=== PATIENT | male | born 1955 | race Caucasian/White ===

== ENCOUNTER 2019-04-03 19:49 | Emergency (ER) | payer OTHER ==
[~2019-04-03] VITALS: Ht 165.1 cm; Wt 80.7 kg
[2019-04-03 20:00] VITALS: BP 134/77
--- NOTE | 2019-04-03 22:00 | NUR ---
PATIENT CALLED. NO RESPONSE.
--- NOTE | 2019-04-03 22:16 | NUR ---
PATIENT CALLED FOR RECHECK. NO RESPONSE AT THIS TIME.
--- NOTE | 2019-04-03 22:25 | NUR ---
PATIENT CALLED. NO RESPONSE AT THIS TIME.
== END 2019-04-03 22:25 | disposition left against medical advice (07) ==
LOC: MED 19:49
DX: R06.6 Hiccough (principal); R51 Headache; E11.9 Type 2 diabetes mellitus without complications; I10 Essential (primary) hypertension; Z53.21 Procedure and treatment not carried out due to patient leaving prior to being seen by health care provider

== ENCOUNTER 2022-11-29 20:16 | Inpatient (IN) | payer OTHER ==
[~2022-11-29] VITALS: Ht 177.8 cm; Wt 86.2 kg
[2022-11-29 20:17] VITALS: BP 142/69
--- NOTE | 2022-11-29 20:21 | NUR ---
PT MARCOS ALS. TAKEN TO BED 11
--- NOTE | 2022-11-29 20:31 | NUR ---
Dr. Corona examining patient.
--- NOTE | 2022-11-29 20:32 | NUR ---
ER physician at patient bedside.
[2022-11-29] MEDS ORDERED: NACL 0.9% 2,000 ML IV ONE (20:35)
[2022-11-29 21:07] LABS: BASOPHILS % (AUTO) 0.1 % (0.0-2.0); EOSINOPHILS % (AUTO) 0.1 % (0.0-4.0); LYMPHOCYTES # (AUTO) 0.8 K/uL (2.0-11.5); LYMPHOCYTES % (AUTO) 3.2 % (20.5-51.1); MEAN CORPUSCULAR HEMOGLOBIN 29 pg (27-31); MEAN CORPUSCULAR HGB CONC 36 g/dL (33-37); MEAN CORPUSCULAR VOLUME 78.5 fL (80-94); MONOCYTES # (AUTO) 1.5 K/uL (0.8-1.0); MONOCYTES % (AUTO) 5.9 % (1.7-9.3); NEUTROPHILS % (AUTO) 90.7 % (42.2-75.2); PLATELET COUNT (AUTO) 295 K/uL (140-450); RED BLOOD CELL COUNT(AUTO) 2.24 MIL/uL (4.20-6.10); RED CELL DISTRIBUTION WIDTH 14.1 % (11.6-13.7)
[2022-11-29 21:19] LABS: ANION GAP 9.4 (8-16); CARBON DIOXIDE 28.2 mmol/L (21-32); POTASSIUM 3.6 mmol/L (3.5-5.1)
--- NOTE | 2022-11-29 21:21 | NUR ---
hakeem sister [phone], pt gave permission to give info
[2022-11-29 21:25] LABS: WHITE BLOOD COUNT (AUTO) 26.4 K/uL (4.8-10.8)
[2022-11-29 21:26] LABS: HEMOGLOBIN 6.4 g/dL (12.0-18.0)
[2022-11-29 21:27] LABS: HEMATOCRIT 17.6 % (36-52)
--- NOTE | 2022-11-29 21:29 | NUR ---
Patient A/Ox4, resting in bed, chest rise and fall symmetrical, no c/o pain or s/s of distress.
[2022-11-29] MEDS ORDERED: ZOLPIDEM 10 MG TAB PO PRN (21:45)
[2022-11-29] MEDS ORDERED: MAG SULF 2000 MG/WATER PREMIX 50 ML IV PRN (21:45)
[2022-11-29] MEDS ORDERED: ACETAMINOPHEN 325 MG TAB PO PRN (21:45)
[2022-11-29] MEDS ORDERED: ONDANSETRON 4 MG/2 ML VIAL IVP PRN (21:45)
[2022-11-29] MEDS ORDERED: DOCUSATE SODIUM 100 MG GELCAP PO PRN (21:45)
[2022-11-29] MEDS ORDERED: MORPHINE SULFATE 2 MG/ML SYR IVP PRN (21:45)
[2022-11-29] MEDS ORDERED: POTASSIUM CHLORIDE 10 MEQ TABER PO PRN (21:45)
[2022-11-29] MEDS ORDERED: DEXTROSE 50% 50 ML SYR IVP PRN (21:50)
--- NOTE | 2022-11-29 22:08 | NUR ---
PT TAKEN TO CT
[2022-11-29] MEDS ORDERED: cefTRIAXone 1,000 MG VIAL ONE (22:13)
[2022-11-29 22:25] LABS: PROTHROMBIN TIME 11.1 secs (10.8-13.4)
--- NOTE | 2022-11-29 22:45 | NUR ---
Patient A/Ox4, resting in bed, chest rise and fall symmetrical, no c/o pain or s/s of distress.
--- NOTE | 2022-11-29 22:54 | NUR ---
Patient will be admitted to care of Telemetry Nurse Elie FOWLER. Admited to Telemetry. Will go to room 110B. Belongings list completed. Report to Telemetry Nurse Elie FOWLER. Telemetry Nurse Elie FOWLER verbalized understanding of report.
--- NOTE | 2022-11-29 23:01 | NUR ---
Dr. Cali verbally informed via telephone that patient stated he "does not have his medications, does not have a list of his medications, and does not rememer the names of his medications." Dr. Cali verbalized understanding and stated that she "will do the medication reconciliation" when she meets with patient tomorrow.
--- NOTE | 2022-11-29 23:15 | NUR ---
PT TRANSPORTED VIA GURNEY FROM ER. PT IS AAOX4. PT SPEAKS PASHTO AND ROMANIAN. PT IS ON RA NOT IN ANY RESPIRATORY DISTRESS. PT ABLE TO AMBULATE WITH ASSIST. PT HAS RIGHT HAND 20 GAUGE SALINE LOCK AND LEFT HAND 20 GAUGE SALINE LOCK. PT DENIES ANY PAIN AND HAS NO COMPLAINS. EDUCATED PT MARKER HAND LIGHT SYSTEM. WILL CONTINUE TO MONITOR THE PT.
[2022-11-30] VITALS: BP 168/61
[2022-11-30] MEDS: ALBUTEROL 0.083% 2.5 MG/3 ML NEBU INH SCH ×4 (00:10→19:42)
--- NOTE | 2022-11-30 00:35 | NUR ---
BLOOD TRANSFUSION STARTED ON PT PER DR. ORDER. NO BLOOD TRANSFUSION REACTION NOTED. WILL CONTINUE TO MONITOR THE PT.
--- NOTE | 2022-11-30 02:05 | NUR ---
OBSERVED PT. PT IS RESTING IN BED COMFORTABLY. PT NOT IN ANY DISTRESS. BLOOD TRANSFUSION STILL RUNNING. WILL CONTINUE TO MONITOR THE PT.
--- NOTE | 2022-11-30 03:10 | NUR ---
BLOOD TRANSFUSION COMPLETED. NO BLOOD TRANSFUSION NOTED. WILL CONTINUE TO MONITOR THE PT.
[2022-11-30 04:00] VITALS: BP 137/72
[2022-11-30] MEDS ORDERED: PIPERACILLIN/TAZOBACTAM 2.25 GM VIAL IV ONE (04:06)
[2022-11-30] MEDS: PIPERACILLIN/TAZOBACTAM 2.25 GM in DEXTROSE 5% 50 ML IV SCH ×3 (04:37→20:38)
--- NOTE | 2022-11-30 04:37 | NUR ---
SCHEDULE ZOSYN GIVEN. NO ADVERSE REACTION NOTED. WILL CONTINUE TO MONITOR THE PT.
[2022-11-30] MEDS: INSULIN LISPRO SLIDING SCALE 100 UNITS/ML VIAL SUBQ PRN ×4 (06:31→21:09)
[2022-11-30] MEDS: BLOOD GLUCOSE MONITORING 1 DEV DEV FS SCH ×4 (06:31→21:03)
[2022-11-30 07:01] LABS: BASOPHILS # (AUTO) 0.1 K/uL (0.00-0.22); BASOPHILS % (AUTO) 0.4 % (0.0-2.0); EOSINOPHILS % (AUTO) 0.1 % (0.0-4.0); HEMOGLOBIN 7.9 g/dL (12.0-18.0); LYMPHOCYTES # (AUTO) 0.9 K/uL (2.0-11.5); LYMPHOCYTES % (AUTO) 2.8 % (20.5-51.1); MEAN CORPUSCULAR HEMOGLOBIN 29 pg (27-31); MEAN CORPUSCULAR HGB CONC 36 g/dL (33-37); MEAN CORPUSCULAR VOLUME 80.5 fL (80-94); MONOCYTES # (AUTO) 1.7 K/uL (0.8-1.0); MONOCYTES % (AUTO) 5.4 % (1.7-9.3); NEUTROPHILS # (AUTO) 28.2 K/uL (1.8-7.7); NEUTROPHILS % (AUTO) 91.3 % (42.2-75.2); PLATELET COUNT (AUTO) 310 K/uL (140-450); RED BLOOD CELL COUNT(AUTO) 2.73 MIL/uL (4.20-6.10)
--- NOTE | 2022-11-30 07:08 | NUR ---
ENDORSED PT TO DAY SHIFT RN FOR CONTINUITY OF CARE. PT IS STABLE.
--- NOTE | 2022-11-30 07:10 | NUR ---
RECEIVED REPORT ON PT FROM WATER RESOURCE ENGINEERING SPECIALIST NURSE FOR CONTINUITY OF CARE. PT IN BED AWAKE AND ALERTX4 . ABLE TO VERBALIZE NEEDS. IV ON L HAND 20G AND R HAND 20G. SL. RESPIRATIONS EVEN AND UNLABORED ON RA. NO DISTRESS NOTED. ALL SAFETY PRECAUTIONS IN PLACE.
[2022-11-30 07:14] LABS: WHITE BLOOD COUNT (AUTO) 30.8 K/uL (4.8-10.8)
[2022-11-30 07:20] LABS: ANION GAP 10.5 (8-16); CARBON DIOXIDE 26.9 mmol/L (21-32); CREATININE 0.8 mg/dL (0.6-1.3); POTASSIUM 3.4 mmol/L (3.5-5.1)
[2022-11-30] MEDS ORDERED: VANCOMYCIN PER PHARMACY MC PRN (07:30)
[2022-11-30 08:00] VITALS: BP 144/71
[2022-11-30] MEDS: VANCOMYCIN 1,000 MG in DEXTROSE 5% 250 ML IV SCH ×2 (09:00→20:37)
--- NOTE | 2022-11-30 09:17 | NUR ---
PATIENT HAS BEEN SCREENED AND CATEGORIZED MODERATE NUTRITION RISK. PATIENT WILL BE SEEN WITHIN 3-5 DAYS OF ADMISSION. REVIEWED BY DIANA WOODALL RD
[2022-11-30] MEDS ORDERED: NACL 0.9% 1,000 ML IV SCH (11:15)
[2022-11-30] MEDS: LORazepam 2 MG/ML VIAL IVP PRN (11:46)
--- NOTE | 2022-11-30 11:50 | NUR ---
PT C/O HAVING ANXIETY AND REQUESTS MEDICATION. ATIVAN ADMINISTERED BY JANETH MAYER
[2022-11-30] MEDS: METOCLOPRAMIDE 10 MG TAB PO SCH ×2 (11:54→16:33)
--- NOTE | 2022-11-30 11:54 | NUR ---
MEDICATION REGLAN ADMINISTERED. PT PLACED MEDICATION IN MOUTH AND BEGAN COUGHING. PT UNSURE IF HE SWALLOWED PILL. NURSE LOOKED AROUND BLANKETS, BED AND FLOOR. MEDICATION NOT FOUND.
[2022-11-30 12:00] VITALS: BP 140/73
[2022-11-30] MEDS ORDERED: MAG SULF 2000 MG/WATER PREMIX 50 ML IV ONE (13:00)
[2022-11-30] MEDS ORDERED: MAG SULF 2000 MG/WATER PREMIX 100 ML IV SCH (13:00)
[2022-11-30] MEDS ORDERED: POTASSIUM CHLORIDE 10 MEQ TABER PO SCH (13:30)
--- NOTE | 2022-11-30 15:16 | NUR ---
DC PLANNING: ATTEMPTED TO MEET PATIENT AT THE BEDSIDE. HOWEVER, PATIENT IS ASLEEP. WILL FOLLOW. Addendum: 12/05/22 at 1226 by Cynthia Mcconnell RN DC PLANNING: PATIENT GOT ACCEPTED AT [facility] [place] FOR IV ABX AND PT. CAN GO TO ROOM 37A # TO GIVE REPORT [phone] ARRANGED TRANSPORT WITH [facility] OBSTETRICIAN/GYNECOLOGIST TIME 1500 NOTIFIED KRISTY CALLAWAY CM TO FOLLOW
--- NOTE | 2022-11-30 15:29 | NUR ---
P.T. NOTES P.T. EVAL COMPLETED; REFER TO EVAL FOR DETAILS.
[2022-11-30 16:00] VITALS: BP 150/72
[2022-11-30 17:25] LABS: ANION GAP 10.2 (8-16); CARBON DIOXIDE 27.4 mmol/L (21-32); CREATININE 0.8 mg/dL (0.6-1.3); POTASSIUM 3.6 mmol/L (3.5-5.1)
--- NOTE | 2022-11-30 17:38 | NUR ---
LAB CALLED WITH CRITICAL SODIUM 118. INFORMED DR CHRISTINA.
--- NOTE | 2022-11-30 19:24 | NUR ---
ENDORSED PT TO INTERNAL AFFAIRS INVESTIGATOR NURSE FOR CONTINUITY OF CARE. PT IN STABLE CONDITION.
--- NOTE | 2022-11-30 20:00 | NUR ---
RECEIVED REPORT FROM KENDRICK. NOTED PT IN BED, LOOKING UNCOMFORTABLE, WITH SLIGHT HICCUPS, DINNER TRAY ON TABLE BY BED SIDE UNTOUCHED. ENCOURAGED PT TO EAT BUT REFUSED. WILL CONT TO MONITOR.
[2022-11-30] MEDS: NACL 0.9% 1,000 ML IV SCH (21:16)
--- NOTE | 2022-11-30 22:00 | NUR ---
RECEIVED MD TALISHA PENA TELEPHONE ORDER TO DO A COVID TEST WITH PCR. ORDER NOTED AND CARRIED OUT. PT IN BED, HELED WITH DIYA CARE AND MADE COMFORTABLE.
[2022-12-01 00:11] VITALS: BP 148/81
--- NOTE | 2022-12-01 00:30 | NUR ---
NOTED PT VOMITED COFFEE GROUND EMESIS. CLEANED UP, HOB ELEVATED
[2022-12-01] MEDS: ALBUTEROL 0.083% 2.5 MG/3 ML NEBU INH SCH ×5 (01:00→19:00)
--- NOTE | 2022-12-01 01:05 | NUR ---
TX NOT GIVEN, PT IS THROWING UP COFFEE GROUND EMESIS, RN AWARE. WILL CONTINUE TO MONITOR
--- NOTE | 2022-12-01 01:30 | NUR ---
PT VOMITTED COFFEE GROUND EMESIS AGAIN. WAS GIVEN ORDERED ZOFRAN IVP. NOTED PT STILL UNCOMFORTABLE, GOT TELEPHONE ORDER FROM MD FOR NG-TUBE INSERTION, ALSO HYDRALAZINE [id number] FOR SBP>160, PT BP WAS NOTED TO BE OVER 160 AT THE TIME. PT IS ALSO COUGHING, RECEIVED ORDER FOR ROBITUSSIN 10ML Q8HR FOR COUGH. MD ALSO GAVE TO FOR CONSULT GI DR ROYAL. ALL ORDERS NOTED AND CARRIED OUT.
[2022-12-01] MEDS ORDERED: guaiFENesin DM 200/20 MG-10 ML 10 ML UDC PO PRN (03:55)
[2022-12-01 04:43] VITALS: BP 140/70
[2022-12-01] MEDS: NACL 0.9% 1,000 ML IV SCH ×3 (06:00→22:31)
[2022-12-01] MEDS: INSULIN LISPRO SLIDING SCALE 100 UNITS/ML VIAL SUBQ PRN ×4 (06:03→20:51)
[2022-12-01] MEDS: BLOOD GLUCOSE MONITORING 1 DEV DEV FS SCH ×4 (06:05→20:49)
[2022-12-01] MEDS: PIPERACILLIN/TAZOBACTAM 2.25 GM in DEXTROSE 5% 50 ML IV SCH ×3 (06:06→21:28)
[2022-12-01 07:28] LABS: HEMATOCRIT 20.7 % (36-52); HEMOGLOBIN 7.4 g/dL (12.0-18.0); MEAN CORPUSCULAR HEMOGLOBIN 29 pg (27-31); MEAN CORPUSCULAR HGB CONC 36 g/dL (33-37); MEAN CORPUSCULAR VOLUME 80.8 fL (80-94); PLATELET COUNT (AUTO) 388 K/uL (140-450); RED BLOOD CELL COUNT(AUTO) 2.56 MIL/uL (4.20-6.10); RED CELL DISTRIBUTION WIDTH 15.1 % (11.6-13.7)
[2022-12-01 08:00] VITALS: BP 156/56
--- NOTE | 2022-12-01 08:03 | NUR ---
END OF SHIFT REPORT GIVEN TO JEAN FOR CONTINUITY OF CARE. PT IN BED ASLEEP. NOTED ONE MORE EMESIS, WAS CLEANED UP. PT NOW NPO, STABLE AT THIS TIME.
[2022-12-01 08:27] LABS: ANION GAP 10.8 (8-16); CREATININE 0.8 mg/dL (0.6-1.3); POTASSIUM 3.8 mmol/L (3.5-5.1)
[2022-12-01 08:35] LABS: LYMPHOCYTES % (MANUAL) 2 % (20-46); MONOCYTES % (MANUAL) 3 % (5-12)
[2022-12-01] MEDS ORDERED: PROMETHAZINE 25 MG TAB PO SCH (09:00)
[2022-12-01] MEDS: METOCLOPRAMIDE 10 MG/2 ML INJ VIAL IVP SCH ×3 (09:41→17:58)
[2022-12-01] MEDS: PANTOPRAZOLE 40 MG INJ VIAL IVP SCH (09:41)
[2022-12-01] MEDS: VANCOMYCIN HCL 1.25 GM in DEXTROSE 5% 250 ML IV SCH ×2 (09:42→22:27)
[2022-12-01 12:00] VITALS: BP 153/76
[2022-12-01 16:00] VITALS: BP 159/59
--- NOTE | 2022-12-01 19:15 | NUR ---
RECEIVED PT FROM MORNING SHIFT NURSE. PT IS AOX2-3, POLISH SPEAKING AND ON BEDBOUND. PT HAS 2L NC AND ON NPO EXCEPT MEDS. PT HAS IV ON LEFT HAND GAUGE 20, SALINE LOCK AND RIGHT HAND GAUGE 20 RUNNING WITH NS AT 125ML/HR. PT DENIES PAIN AT THIS TIME. NO S/S OF RESPIRATORY DISTRESS NOTED. PT SKIN IS INTACT. ALL SAFETY MEASURES IMPLEMENTED. BED IN LOW POSITION, BED WHEELS ON LOCK AND CALL LIGHT WITHIN REACH.
[2022-12-01 20:00] VITALS: BP 151/80
--- NOTE | 2022-12-01 20:30 | NUR ---
PT WAS ENDORSED TO JEN GLORIA DUE TO CHANGED OF ASSIGNMENT AND CONTINUITY OF CARE.
--- NOTE | 2022-12-01 20:31 | NUR ---
Patient's Plan of Care was discussed and reviewed with JEN: FAIZAN
[2022-12-02] VITALS: BP 138/63
--- NOTE | 2022-12-02 00:30 | NUR ---
PATIENT WAS GIVEN PRN FOR SLEEP. NOT EFFECTIVE. NURSING ENCOURAGED TO TURN OFF LIGHTS PATIENT DECLINED. NURSING WILL MONITOR [email or web address]
[2022-12-02] MEDS: ALBUTEROL 0.083% 2.5 MG/3 ML NEBU INH SCH ×4 (01:00→20:10)
--- NOTE | 2022-12-02 01:30 | NUR ---
PATIENT CONFUSED USING CALL LIGHT LIKE A PHONE. PATIENT WAS EDUCATED TO CALL FAMILY IN THE AM INSTEAD OF NOW. PATIENT AGREED. NURSING ENCOURAGED HIM TO SLEEP. [email or web address]
[2022-12-02 04:00] VITALS: BP 124/56
[2022-12-02] MEDS: PIPERACILLIN/TAZOBACTAM 2.25 GM in DEXTROSE 5% 50 ML IV SCH ×3 (04:13→21:00)
--- NOTE | 2022-12-02 05:37 | NUR ---
PATIENT HAS MANAGED TO PULL OUT HIS NG TUBING. BELT OPERATOR MD HAS BEEN NOTIFIED. AWAITING ORDERS. [email or web address]
[2022-12-02] MEDS: NACL 0.9% 1,000 ML IV SCH ×2 (06:14→16:06)
[2022-12-02] MEDS ORDERED: HALOPERIDOL IM 5 MG/ML VIAL IM SCH (06:25)
[2022-12-02] MEDS: BLOOD GLUCOSE MONITORING 1 DEV DEV FS SCH ×4 (06:52→21:00)
[2022-12-02] MEDS: INSULIN LISPRO SLIDING SCALE 100 UNITS/ML VIAL SUBQ PRN ×3 (06:52→16:44)
--- NOTE | 2022-12-02 07:00 | NUR ---
PT REFUSED 700 TREATMENT. HE WAS BIT AGITATED, HR WAS ELEVATED TO 110, RR WAS 24 BUT O2 SAT WAS 100%. HIS RIGHT LUNG WAS CLEAR BUT ULL SOUNDED COARSE. TALKED WITH HIM WHILE ASSESSING. BY THE TIME I LEFT HE WAS CALMER BUT STILL DID NOT WANT THE TX.
--- NOTE | 2022-12-02 07:01 | NUR ---
ENDORSED TO LETA RN, PATIENT WAS RESTLESS DURING SHIFT REPORT. ENDORSED HALDOL WAS GIVEN BUT NO INSTRUCTION WHETHER TO REINSERT NG TUBE. PLEASE FOLLOW UP WITH . [email or web address]
[2022-12-02 07:04] LABS: BASOPHILS % (AUTO) 0.2 % (0.0-2.0); EOSINOPHILS # (AUTO) 0.1 K/uL (0-0.4); EOSINOPHILS % (AUTO) 0.6 % (0.0-4.0); MEAN CORPUSCULAR HEMOGLOBIN 29 pg (27-31); MEAN CORPUSCULAR HGB CONC 35 g/dL (33-37); MEAN CORPUSCULAR VOLUME 82.6 fL (80-94); MONOCYTES # (AUTO) 1.7 K/uL (0.8-1.0); MONOCYTES % (AUTO) 6.5 % (1.7-9.3); NEUTROPHILS # (AUTO) 23.1 K/uL (1.8-7.7); PLATELET COUNT (AUTO) 453 K/uL (140-450); RED BLOOD CELL COUNT(AUTO) 2.41 MIL/uL (4.20-6.10); RED CELL DISTRIBUTION WIDTH 14.6 % (11.6-13.7)
[2022-12-02 07:10] LABS: CARBON DIOXIDE 29.9 mmol/L (21-32); CREATININE 0.8 mg/dL (0.6-1.3); POTASSIUM 3.9 mmol/L (3.5-5.1)
[2022-12-02 07:13] LABS: HEMATOCRIT 19.9 % (36-52)
[2022-12-02] MEDS: METOCLOPRAMIDE 10 MG/2 ML INJ VIAL IVP SCH ×3 (07:30→16:41)
--- NOTE | 2022-12-02 07:30 | NUR ---
REPORT RECEIVED FROM NIGHTSHIFT NURSEFAIZAN AND STATES PT STARTED TO BECOME CONFUSE SINCE THE START OF HER SHIFT AND LATER PULLED OUT HIS NG TUBE. PT CONFUSED, NO NGT IN PLACE, IVF INFUSING ON R HAND #20. SUCTION NOTED WITH DARK RED BLOOD. CONTACTED MD FOR RESTRAINTS, REPORTED CRITICAL LABS, AND NGT PLACEMENT WITH CXR. MD ORDER FOR RESTRAINTS, 1 UNIT PRBC, NGT PLACEMENT WITH CXR, ABGS. WILL CARRY OUT ORDERS. ALL SAFETY MEASURES IN PLACE. SAFETY AIDE AT BEDSIDE WITH PT.
--- NOTE | 2022-12-02 07:33 | NUR ---
ABG DONE ON NASAL CANNULA - PT TOLERATED
[2022-12-02 08:00] VITALS: BP 162/57
--- NOTE | 2022-12-02 08:00 | NUR ---
PT OFF TO EGD.
[2022-12-02 08:01] LABS: LYMPHOCYTES % (AUTO) 3.9 % (20.5-51.1); NEUTROPHILS % (AUTO) 88.8 % (42.2-75.2)
[2022-12-02] MEDS ORDERED: MIDAZOLAM 2 MG/2 ML VIAL ONE (08:30)
[2022-12-02] MEDS ORDERED: fentaNYL citrate 0.05 MG/ML VIAL ONE (08:30)
[2022-12-02] MEDS: MIDAZOLAM 2 MG/2 ML VIAL IVP ONE ×2 (08:33→08:50)
[2022-12-02] MEDS: fentaNYL citrate 0.05 MG/ML VIAL IVP ONE ×2 (08:34→08:50)
--- NOTE | 2022-12-02 09:00 | NUR ---
PT BACK FROM EGD AND REPORT FROM OR NURSE STATES NG TUBE PLACED ON L NARE. WILL FOLLOW-UP WITH CHEST XRAY FOR PLACEMENT.
[2022-12-02] MEDS: PANTOPRAZOLE 40 MG INJ VIAL IVP SCH ×2 (09:13→21:00)
--- NOTE | 2022-12-02 09:13 | NUR ---
PENDING XRAY OF NGT PLACEMENT. P.O. MEDICATION DEXAMETHASONE HELD.
[2022-12-02] MEDS: VANCOMYCIN HCL 1.25 GM in DEXTROSE 5% 250 ML IV SCH ×2 (09:14→22:00)
--- NOTE | 2022-12-02 09:40 | NUR ---
NT suctioned pt - patient has weak cough - thin pale yellow and blood tinged suctioned
[2022-12-02 12:00] VITALS: BP 157/57
[2022-12-02] MEDS: hydrALAZINE 20 MG/ML VIAL IVP PRN (12:54)
--- NOTE | 2022-12-02 13:15 | NUR ---
STARTED 1 UNIT PRBC. VSS. 97.6, 116, 16, 144/56, ON 2L NC WITH O2 SATURATION @ 96%. PT ON RESTRAINTS. GOOD C/S/M. PT STILL CONFUSED, HOWEVER, ABLE TO STATE NAME AND .
--- NOTE | 2022-12-02 13:30 | NUR ---
1 UNIT PRBC TRANSFUSING. NO REACTION. VSS. 97.8, 106, 16, 137/59, O2 SATURATION @ 96% ON 2L NC. PT RESTING WITH EYES CLOSED. ALL NEEDS MET. ALL SAFETY MEASURES IN PLACE.
--- NOTE | 2022-12-02 15:30 | NUR ---
1 UNIT PRBC COMPLETED. 97.2, 118, 145/63, 16, 98% 02 ON 2L NC. NO REACTION. PT RESTING COMFORTABLY. HOB ELEVATED. NGT IN PLACE. ALL NEEDS MET AT THIS TIME. ALL SAFETY MEASURES IN PLACE.
[2022-12-02 16:00] VITALS: BP 149/56
--- NOTE | 2022-12-02 16:00 | NUR ---
150 ML BOLUS OF JEVITY 1.2 GIVEN WITH 100 ML WATER FLUSH. HOB ELEVATED. TOLERATED WELL. NEEDS ALL MET. ALL SAFETY MEASURES IN PLACE.
--- NOTE | 2022-12-02 19:15 | NUR ---
BEDSIDE REPORT GIVEN TO NIGHTSHIFT NURSEEMERALD.
--- NOTE | 2022-12-02 19:30 | NUR ---
ENDORSED FOR CONTINUITY OF CARE FROM LETA FOWLER: EDGE ROLLER DECREASED IV FLUIDS FROM 125 TO 75 ML/HR; PT POST EGD PROCEDURE WITH GI BLEEDING CLIPPED; ONE UNIT PRBC GIVEN; NG FEEDING, JEVITY 1.2 150 ML Q4H, WATER FLUSH 100 MLS Q4/HR, AND FINALLY 10 MLS COKE AFTER EACH FEEDING AND CLAMP, RESTRAINT RENEWAL TO BE COMPLETED IN A.M BY APPROX 0720. ABG'S AND CXR COMPLETED ON DAYS. OCCULT BLOOD SPECIMEN NEED COLLECTING. VANCO TROUGH PENDING BEFORE TONIGHTS DOSE. RECEIVED PT, SOFT WRIST RESTRAINTS, MUMBLINGS CONCERNING HIS DESIRE TO "SEE MY MAMA". INCONT BOWEL AND BLADDER. DIYA-CARE NEEDED AND POSITION FOR COMFORT. SAFETY MEASURES CONTINUE IN PLACE. CALL LIGHT RESTING ON HAND FOR EASY ACCESS.
[2022-12-02 20:00] VITALS: BP 137/81
--- NOTE | 2022-12-02 21:45 | NUR ---
CRITICAL LAB: VANCOMYCIN LEVEL 16.3 (TIN SALICYLIC ACID BLENDER). "CONTINUE UNCHANGED...GO0D LEVEL" ([facility]) WILL CONTINUE VANCOMYCIN. NO CHANGES.
[2022-12-03] VITALS: BP 138/78
[2022-12-03] MEDS: ALBUTEROL 0.083% 2.5 MG/3 ML NEBU INH SCH ×5 (00:27→19:09)
[2022-12-03] MEDS: INSULIN LISPRO SLIDING SCALE 100 UNITS/ML VIAL SUBQ PRN ×5 (03:09→21:41)
[2022-12-03 04:00] VITALS: BP 133/89
[2022-12-03] MEDS: PIPERACILLIN/TAZOBACTAM 2.25 GM in DEXTROSE 5% 50 ML IV SCH ×3 (04:52→21:26)
[2022-12-03] MEDS: NACL 0.9% 1,000 ML IV SCH ×2 (05:21→21:13)
[2022-12-03] MEDS: BLOOD GLUCOSE MONITORING 1 DEV DEV FS SCH ×4 (06:55→21:25)
[2022-12-03] MEDS: METOCLOPRAMIDE 10 MG/2 ML INJ VIAL IVP SCH ×3 (07:05→17:08)
[2022-12-03 07:10] LABS: ANION GAP 8.6 (8-16); CARBON DIOXIDE 33.7 mmol/L (21-32); CREATININE 0.8 mg/dL (0.6-1.3); POTASSIUM 3.3 mmol/L (3.5-5.1)
[2022-12-03 07:13] LABS: BASOPHILS # (AUTO) 0.1 K/uL (0.00-0.22); BASOPHILS % (AUTO) 0.3 % (0.0-2.0); EOSINOPHILS # (AUTO) 0.2 K/uL (0-0.4); HEMATOCRIT 24.6 % (36-52); HEMOGLOBIN 8.7 g/dL (12.0-18.0); LYMPHOCYTES # (AUTO) 0.8 K/uL (2.0-11.5); LYMPHOCYTES % (AUTO) 4.1 % (20.5-51.1); MEAN CORPUSCULAR HEMOGLOBIN 29 pg (27-31); MEAN CORPUSCULAR HGB CONC 35 g/dL (33-37); MEAN CORPUSCULAR VOLUME 82.9 fL (80-94); MONOCYTES # (AUTO) 1.5 K/uL (0.8-1.0); MONOCYTES % (AUTO) 7.6 % (1.7-9.3); NEUTROPHILS # (AUTO) 17.6 K/uL (1.8-7.7); PLATELET COUNT (AUTO) 469 K/uL (140-450); RED BLOOD CELL COUNT(AUTO) 2.97 MIL/uL (4.20-6.10); RED CELL DISTRIBUTION WIDTH 15.3 % (11.6-13.7); WHITE BLOOD COUNT (AUTO) 20.3 K/uL (4.8-10.8)
--- NOTE | 2022-12-03 07:30 | NUR ---
HAND-OFF REPORT TO A.M NURSE FOR CONTINUITY OF CARE OF AFORE MENTIONED ITEMS. RELINQUISHED PT TO NURSE YOUNG WITH SAFETY PROTOCOLS IN PLACE AND PATIENT WITH NO S/S OF DISTRESS.
--- NOTE | 2022-12-03 07:31 | NUR ---
CORRECTION: Martinez YOUNG.
[2022-12-03] MEDS: PANTOPRAZOLE 40 MG INJ VIAL IVP SCH ×2 (08:09→21:33)
--- NOTE | 2022-12-03 09:28 | NUR ---
NURSES NOTE PATIENT RECEIVED ON BED SIDE , A/OX1 , CONFUSED, VSS , SINUS TACHYCARDIA ON MONITOR , SKIN INTACT ON IV FLUID 75CC/H , ON RESTRAIN , ON NG FEEDING TUBE 150CC/4H WITYH WATER FLUSH 100CCAND 10CC SODA BEDBOUND ON BED , STILL UNDER OBSERVE .
[2022-12-03] MEDS: VANCOMYCIN HCL 1.25 GM in DEXTROSE 5% 250 ML IV SCH ×2 (09:37→23:41)
[2022-12-03 09:50] VITALS: BP 149/50
[2022-12-03] MEDS ORDERED: POTASSIUM CHLORIDE 40 MEQ, LIDOCAINE 1% 25 MG in NACL 0.9% 250 ML IV ONE (10:00)
[2022-12-03] MEDS: hydrALAZINE 20 MG/ML VIAL IVP PRN (12:02)
[2022-12-03 13:04] VITALS: BP 171/73
--- NOTE | 2022-12-03 14:28 | NUR ---
PATIENT PULL OFF HIS NG TUBE FEEDING , SWALLOW EVALUATION ORDER FOR HIM
--- NOTE | 2022-12-03 14:40 | NUR ---
NURSES NOTE PATIENT ON BED REST AND ON RESTRAIN , A/OX1 , VSS SINUS TACHYCARDIA ON MONITOR , INCONTINENT X2 ON IV FLUID N/S 0.9% , 75CC/H , SKIN INTACT , NG TUBE PULLED OFF BY PATIENT , SLANDERED ISOLATION PATIENT WAITING FOR SWALLOW ELAUT , NO COMPLAIN AT THIS TIME , STILL UNDER OBSERVE .
--- NOTE | 2022-12-03 14:49 | NUR ---
DC PLANNING SW ATTEMPTED TO MEET PT AT BEDSIDE TO COMPLETE ASSESSMENT HOWEVER, PT REQUESTED SW CALL EMERGENCY CONTACT. SW OUTREACHED TO PTS EMERGENCY CONTACT TIMI, HOWEVER, PHONE IS ANSWERED AND THEN HUNG UP.
[2022-12-03 17:16] VITALS: BP 156/71
--- NOTE | 2022-12-03 18:00 | NUR ---
nurses note speech therapy sow patient , and he said patient pass swallow evaluation , informed waiting to call me back , for order diet for paqtient .
--- NOTE | 2022-12-03 18:14 | NUR ---
PT WAS SEEN FOR DYSPHAGIA. PT WAS ABLE TO SAFELY SWALLOW PUREE DIET WITH THIN LIQUID WITHOUT OVERT S/S OF ASPIRATION. RECOMMENDATION PUREE DIET W ITH THIN LIQUID
--- NOTE | 2022-12-03 19:40 | NUR ---
`SHIFT REPORT GIVEN TO BUSTER FOWLER ALL HER QUESTION ANSWER .
--- NOTE | 2022-12-03 19:45 | NUR ---
RECEIVED PATIENT LYING ON THE BED, HOB ELEVATED, NO SIGNS OF PAIN/DISCOMFORT NOTED, NO SIGNS OF DISTRESS NOTED
[2022-12-03 20:00] VITALS: BP 143/65
--- NOTE | 2022-12-03 21:33 | NUR ---
SCHEDULED MEDICATIONS GIVEN ORDERED. SAFETY MEASURES IN PLACE.
[2022-12-04] VITALS (7 sets, daily range): BP systolic 140–171; BP diastolic 69–79
[2022-12-04] MEDS: ALBUTEROL 0.083% 2.5 MG/3 ML NEBU INH SCH ×3 (01:17→19:00)
--- NOTE | 2022-12-04 01:50 | NUR ---
CHECK ON PATIENT, PATIENT IS AWAKE, DENIES PAIN, NO SIGNS OF DISTRESS NOTED.
--- NOTE | 2022-12-04 02:35 | NUR ---
STOOL SAMPLE COLLECTED FOR OCCULT BLOOD, SENT TO LAB.
[2022-12-04] MEDS: PIPERACILLIN/TAZOBACTAM 2.25 GM in DEXTROSE 5% 50 ML IV SCH ×2 (04:46→13:39)
[2022-12-04] MEDS: NACL 0.9% 1,000 ML IV SCH ×2 (04:50→21:21)
[2022-12-04] MEDS: BLOOD GLUCOSE MONITORING 1 DEV DEV FS SCH ×4 (06:31→20:24)
[2022-12-04] MEDS: INSULIN LISPRO SLIDING SCALE 100 UNITS/ML VIAL SUBQ PRN ×3 (06:32→16:17)
[2022-12-04] MEDS: METOCLOPRAMIDE 10 MG/2 ML INJ VIAL IVP SCH ×3 (06:38→15:37)
[2022-12-04 06:58] LABS: BASOPHILS % (AUTO) 0.2 % (0.0-2.0); EOSINOPHILS # (AUTO) 0.2 K/uL (0-0.4); HEMOGLOBIN 8.5 g/dL (12.0-18.0); LYMPHOCYTES # (AUTO) 0.8 K/uL (2.0-11.5); LYMPHOCYTES % (AUTO) 4.7 % (20.5-51.1); MEAN CORPUSCULAR HEMOGLOBIN 31 pg (27-31); MEAN CORPUSCULAR HGB CONC 35 g/dL (33-37); MEAN CORPUSCULAR VOLUME 86.7 fL (80-94); MONOCYTES # (AUTO) 1.7 K/uL (0.8-1.0); MONOCYTES % (AUTO) 9.5 % (1.7-9.3); NEUTROPHILS # (AUTO) 15.2 K/uL (1.8-7.7); NEUTROPHILS % (AUTO) 84.6 % (42.2-75.2); PLATELET COUNT (AUTO) 465 K/uL (140-450); RED BLOOD CELL COUNT(AUTO) 2.76 MIL/uL (4.20-6.10); RED CELL DISTRIBUTION WIDTH 14.8 % (11.6-13.7); WHITE BLOOD COUNT (AUTO) 17.9 K/uL (4.8-10.8)
[2022-12-04 07:10] LABS: ANION GAP 8.6 (8-16); CARBON DIOXIDE 34.5 mmol/L (21-32); CREATININE 0.9 mg/dL (0.6-1.3); POTASSIUM 3.1 mmol/L (3.5-5.1)
--- NOTE | 2022-12-04 07:25 | NUR ---
ENDORSED PATIENT TO DAY NURSE FOR CONTINUITY OF CARE. NEEDS MET THROUGHOUT THE SHIFT. PATIENT IN STABLE CONDITION.
--- NOTE | 2022-12-04 07:29 | NUR ---
RECEIVED REPORT FROM CASE PACKER NURSE FOR CONTINUITY OF CARE, POC DISCUSSED. PT IS CURRENTLY RESTRAINED, PENDING RENEWAL ORDER. PT ON 2L NC WITH CHEST RISING AND FALLING EVEN AND UNLABORED, ON TELE MONITOR SHOWING ST. ALL SAFETY MEASURES IN PLACE, CALL LIGHT WITHIN REACH. WILL CONTINUE TO MONITOR.
--- NOTE | 2022-12-04 07:48 | NUR ---
CONTACTED REGARDING RENEWAL OF RESTRAINTS FOR PULLING IV AND MEDICAL LINES.
--- NOTE | 2022-12-04 07:54 | NUR ---
RENEWED RESTRAINT ORDER.
[2022-12-04] MEDS: PANTOPRAZOLE 40 MG INJ VIAL IVP SCH ×2 (09:24→20:05)
[2022-12-04] MEDS: hydrALAZINE 20 MG/ML VIAL IVP PRN ×2 (09:27→20:34)
[2022-12-04] MEDS: VANCOMYCIN HCL 1.25 GM in DEXTROSE 5% 250 ML IV SCH (09:29)
--- NOTE | 2022-12-04 09:30 | NUR ---
GISEL MEDICATION ADMINISTERED PER MD ORDER, PT BP 173/92 PRN HYDRALAZINE ADMINISTERED PER MD ORDER. NEW IV INSERTED TO RIGHT FOREARM 22G, RIGHT AND LEFT HAND IV REMOVED. PT ALERT AND ORIENTED X3, PHYSICAL THERAPY AT BEDSIDE, AMBULATE WITH STAND BY ASSIST. ALL SAFETY MEASURES IN PLACE, CALL LIGHT WITHIN REACH. WILL CONTINUE TO MONITOR.
--- NOTE | 2022-12-04 10:01 | NUR ---
ATTEMPTING NO RESTRAINTS
--- NOTE | 2022-12-04 13:30 | NUR ---
DISCHARGE PLANNING PATIENT IS A 67 YEAR-OLD MALE ADMITTED ON THE [facility]/ER ON 11/29/2022 DUE TO SEPSIS. PROGRAM CONSULTANT MEET WITH PATIENT AT BEDSIDE TO DISCUSS AND GATHER HIS COLLATERAL INFORMATION. PER PATIENT HE LIVES AT HOME IN [place] WITH HIS MOTHER. PER PATIENT HE HAS GOOD FAMILY SUPPORT SYSTEM FROM HIS ADULT SISTER SAGAR RUVALCABA . PATIENT REPORTED BEEN ABLE TO AMBULATE INDEPENDENTLY WITH OUT ANY ASSISTANCE, EMPLOYED AND BELIEVING TO BE IN [employer] UNTIL RECENTLY. PER PATIENT HE HAS NO ADVANCE DIRECTIVES AND WAS NOT INTERESTED ON GETTING INFORMATION PACKET PROVIDED BY SW. PER PATIENT HIS SISTER SAGAR RUVALCABA IS HIS EMERGENCY CONTACT AND MEDICAL DECISION MAKER. PATIENT REPORTED HAVING NO DME AT HOME AND NO NEED OF ANY AT THIS TIME. PATIENT ALSO REPORTED NOT HAVING ANY ISSUES WITH HIS MEDICATIONS AND GETTING HIS MEDICATIONS FROM PHARMACY [facility] IN [place] [facility] IN [place]. PATIENT STATED THAT HIS PRIMARY DOCTOR IS MD. MASSEY WHO HE LAST SAW ABOUT 2 MONTHS AGO. SW DISCUSSED WITH PATIENT ABOUT THE IMPORTANCE OF MAKING A FOLLOW UP APPOINTMENT AFTER HIS DISCHARGE PATIENT AGREED FOR SW TO MAKE APPOINTMENT WHEN HE IS DISCHARGE. PROGRAM CONSULTANT INFORM HIM THAT SW WILL MAKE HIS APPOINTMENT WITHIN 7 DAYS OF DISCHARGE. PATIENT STATED THAT HIS SISTER WILL BE ASSISTING WITH HIS TRANSPORT BACK HOME AFTER DC FROM [facility]. SW WILL FOLLOW UP WITH AFTERCARE APPOINTMENT. MELANY/BERNA WILL FOLLOW UP NEEDED.
--- NOTE | 2022-12-04 13:41 | NUR ---
REASSESSMENT OF BLOOD PRESSURE, 147/70. PT ASLEEP IN BED WITH NO ACUTE S/S OF DISTRESS
[2022-12-04] MEDS ORDERED: POTASSIUM CHLORIDE 10 MEQ TABER PO PRN (15:00)
--- NOTE | 2022-12-04 15:30 | NUR ---
CONTACTED MD REGARDING PT POTASSIUM LEVEL 3.1
--- NOTE | 2022-12-04 15:45 | NUR ---
GISEL MEDICATION AND PRN POT REPLACEMENT ADMINISTERED. PT TOLERATED ADMINISTRATION. ALL SAFETY MEASURES IN PLACE, CALL LIGHT WITHIN REACH WILL CONTINUE TO MONITOR.
--- NOTE | 2022-12-04 16:30 | NUR ---
12/04/22 RD INITIAL ASSESSMENT COMPLETED PLEASE REFER TO NUTRITION ASSESSMENT UNDER CARE ACTIVITY FOR ESTIMATED NUTRITIONAL NEEDS. 1. CONTINUE CCHO 60 GRAM PUREE DIET 2. RECOMMEND ADDING CARDIAC TO CURRENT DIET. 3. RECOMMEND GLUCERNA 1 X DAY 4. MONITOR PO INTAKE, GI, AND LAB VALUES. 5. RD TO FOLLOW-UP 3-5 DAYS, MODERATE RISK REVIEWED BY DIANA WOODALL RD
--- NOTE | 2022-12-04 16:59 | NUR ---
PT STABLE IN BED ON ROOM PHONE, REPORTS ALL NEEDS ARE MET. ALL SAFETY MEASURES IN PLACE. CALL LIGHT WITHIN REACH. WILL CONTINUE TO MONITOR.
--- NOTE | 2022-12-04 18:52 | NUR ---
ALL NEEDS HAVE BEEN MET, PT IS STABLE. POC WILL BE DISCUSSED AND ENDORSED TO ROPEWALK ROPE MAKER NURSE.
--- NOTE | 2022-12-04 19:10 | NUR ---
RECEIVED PATIENT LYING ON THE BED, NO SIGNS OF DISTRESS NOTED, PATIENT DENIES PAIN. IV ON LEFT FOREARM, INTACT AND PATENT, RUNNING NS @75ML/HR. CALL LIGHT WITHIN REACH, BED IN LOW AND LOCKED POSITION.
[2022-12-04] MEDS: PIPERACILLIN/TAZOBACTAM 3.375 GM in DEXTROSE 5% 50 ML IV SCH (20:05)
--- NOTE | 2022-12-04 20:34 | NUR ---
SCHEDULED MEDICATIONS GIVEN ORDERED. PRN HYDRALAZINE GIVEN, BP 171/79, P 128. WILL CONTINUE TO ASSESS PATIENT. SAFETY MEASURES IN PLACE.
--- NOTE | 2022-12-04 21:51 | NUR ---
REASSESSMENT OF BP 151/71. NO SIGNS OF DISTRESS NOTED.
[2022-12-05] VITALS: BP 151/72
[2022-12-05] MEDS: NACL 0.9% 1,000 ML IV SCH (01:02)
[2022-12-05] MEDS: ALBUTEROL 0.083% 2.5 MG/3 ML NEBU INH SCH ×2 (01:22→07:58)
--- NOTE | 2022-12-05 03:34 | NUR ---
CHECK ON PATIENT. PATIENT IS ASLEEP, BREATHING EVEN AND NON LABORED, ON O2 @2LPM NC. NO SIGNS OF PAIN/DISCOMFORT NOTED. BED IN LOW AND LOCKED POSITION. CALL LIGHT WITHIN REACH.
[2022-12-05 04:00] VITALS: BP 142/87
[2022-12-05] MEDS: PIPERACILLIN/TAZOBACTAM 3.375 GM in DEXTROSE 5% 50 ML IV SCH ×2 (04:12→12:17)
[2022-12-05] MEDS: BLOOD GLUCOSE MONITORING 1 DEV DEV FS SCH ×2 (06:30→12:17)
[2022-12-05] MEDS: INSULIN LISPRO SLIDING SCALE 100 UNITS/ML VIAL SUBQ PRN ×2 (06:31→12:17)
[2022-12-05] MEDS: METOCLOPRAMIDE 10 MG/2 ML INJ VIAL IVP SCH ×2 (06:44→10:37)
[2022-12-05 07:34] LABS: BASOPHILS % (AUTO) 0.4 % (0.0-2.0); EOSINOPHILS # (AUTO) 0.1 K/uL (0-0.4); EOSINOPHILS % (AUTO) 1.3 % (0.0-4.0); HEMATOCRIT 20.9 % (36-52); LYMPHOCYTES # (AUTO) 0.6 K/uL (2.0-11.5); LYMPHOCYTES % (AUTO) 5.5 % (20.5-51.1); MEAN CORPUSCULAR HEMOGLOBIN 35 pg (27-31); MEAN CORPUSCULAR HGB CONC 38 g/dL (33-37); MEAN CORPUSCULAR VOLUME 91.8 fL (80-94); MONOCYTES # (AUTO) 1.4 K/uL (0.8-1.0); MONOCYTES % (AUTO) 11.9 % (1.7-9.3); NEUTROPHILS # (AUTO) 9.2 K/uL (1.8-7.7); NEUTROPHILS % (AUTO) 80.9 % (42.2-75.2); PLATELET COUNT (AUTO) 443 K/uL (140-450); RED BLOOD CELL COUNT(AUTO) 2.28 MIL/uL (4.20-6.10); RED CELL DISTRIBUTION WIDTH 14.4 % (11.6-13.7); WHITE BLOOD COUNT (AUTO) 11.4 K/uL (4.8-10.8)
--- NOTE | 2022-12-05 07:35 | NUR ---
RECEIVED REPORT FROM CASING MAN NURSE. PATIENT LYING DOWN IN BED, AWAKE, ALERT, NO DISTRESS, ON 2L/MIN VIA NC, SKIN INTACT, NO S/S OF BLEEDING OR HEMATEMESIS. IV SITE INTACT, PATENT, INFUSING IVF PER MD ORDERS. REVIEWED PLAN OF CARE WITH PATIENT. REINFORCEMENT NEEDED. SAFETY MEASURES IN PLACE, CALL LIGHT WITHIN REACH. WILL CONTINUE TO MONITOR.
[2022-12-05 08:00] VITALS: BP 166/80
[2022-12-05] MEDS: hydrALAZINE 20 MG/ML VIAL IVP PRN (08:56)
[2022-12-05] MEDS: PANTOPRAZOLE 40 MG INJ VIAL IVP SCH (09:04)
--- NOTE | 2022-12-05 09:04 | NUR ---
SCHEDULED MEDICATIONS DUE GIVEN. WILL CONTINUE TO MONITOR.
[2022-12-05 09:14] LABS: ANION GAP 11.5 (8-16); CARBON DIOXIDE 32.5 mmol/L (21-32); CREATININE 0.9 mg/dL (0.6-1.3)
[2022-12-05] MEDS ORDERED: DOCU-299 PO (09:22)
[2022-12-05] MEDS ORDERED: PIPE1SOL IV (09:22)
[2022-12-05] MEDS ORDERED: SUCR1TAB35 PO (09:22)
[2022-12-05] MEDS ORDERED: ACET-1182 PO (09:22)
[2022-12-05] MEDS ORDERED: OMEP-303 PO (09:22)
[2022-12-05] MEDS ORDERED: PRON INH (09:22)
[2022-12-05 09:34] LABS: MAGNESIUM 1.7 mg/dL (1.8-2.4); PHOSPHORUS 3.8 mg/dL (2.5-4.9)
[2022-12-05] MEDS: LORazepam 2 MG/ML VIAL IVP PRN (10:58)
--- NOTE | 2022-12-05 10:59 | NUR ---
COMPLAINS OF NAUSEA, VOMIT X 1 WITHOUT BLOOD DUE TO HICCUPS PER SISTER. ZOFRAN GIVEN AT THIS TIME. ALSO COMPLAINS OF ANXIETY, ATIVAN PRN GIVEN AT THIS TIME.
[2022-12-05 12:00] VITALS: BP 138/67
--- NOTE | 2022-12-05 12:18 | NUR ---
SCHEDULED MEDICATIONS DUE GIVEN. WILL CONTINUE TO MONITOR.
--- NOTE | 2022-12-05 14:00 | NUR ---
CALLED [facility] AND GAVE REPORT TO JANETH MITCHELL. ANSWERED ALL HER QUESTIONS AND NOTIFIED HER OF ARRIVAL TIME OF 1500. VERBALIZED UNDERSTANDING. CALLED SISTER CIPRIANO AND NOTIFIED HER OF PATIENT'S TRANSFER TIME TO [facility]. VERBALIZED UNDERSTANDING. DISCHARGE INSTRUCTIONS PROVIDED TO PATIENT. ANSWERED ALL OF PATIENT'S QUESTIONS.
--- NOTE | 2022-12-05 15:15 | NUR ---
PATIENT TRANSFERRED TO [facility] AT THIS TIME VIA [facility].
== END 2022-12-05 15:15 | DRG 871 ==
LOC: MED 20:16 → MTU 21:44
PROVIDERS: ADMIT Family Medicine; ATTEND Family Medicine
PROC: 30233N1 Transfusion of Nonautologous Red Blood Cells into Peripheral Vein, Percutaneous Approach (ICD-10-PCS; 2022-11-30)
PROC: 0W3P8ZZ Control Bleeding in Gastrointestinal Tract, Via Natural or Artificial Opening Endoscopic (ICD-10-PCS; principal; 2022-12-05)
PROC: 0DB78ZX Excision of Stomach, Pylorus, Via Natural or Artificial Opening Endoscopic, Diagnostic (ICD-10-PCS; 2022-12-05)
PROC: 0D9680Z Drainage of Stomach with Drainage Device, Via Natural or Artificial Opening Endoscopic (ICD-10-PCS; 2022-12-05)
DX: A41.9 Sepsis, unspecified organism (principal); G93.41 Metabolic encephalopathy; J18.9 Pneumonia, unspecified organism; J96.01 Acute respiratory failure with hypoxia; K25.4 Chronic or unspecified gastric ulcer with hemorrhage; E87.1 Hypo-osmolality and hyponatremia; D62 Acute posthemorrhagic anemia; J98.11 Atelectasis; E83.51 Hypocalcemia; I10 Essential (primary) hypertension; K20.90 Esophagitis, unspecified without bleeding; K44.9 Diaphragmatic hernia without obstruction or gangrene; Z20.822 Contact with and (suspected) exposure to COVID-19; E87.8 Other disorders of electrolyte and fluid balance, not elsewhere classified; E11.65 Type 2 diabetes mellitus with hyperglycemia; E87.6 Hypokalemia; E83.42 Hypomagnesemia
CPT/HCPCS: 36415; 36430; 36600; 70450; 71045; 80048; 80202; 82009; 82272; 82533; 82570; 82803; 82948; 83605; 83735; 83935; 84100; 84133; 84300; 84443; 84550; 85025; 85610; 85730; 86677; 86886; 86900; 86901; 86920; 87040; 87081; 92610; 94640; 96361; 96365; 97110; 97112; 97116; 97530; 99285; C9113; J0360; J0696; J1630; J2001; J2060; J2250; J2405; J2543; J2765; J3010; J3370; J3475; J3480; J7030; J7060; J7613; J8597; P9016; Q0092

== ENCOUNTER 2022-12-24 12:31 | Inpatient (IN) | payer OTHER ==
[~2022-12-24] VITALS: Ht 167.6 cm; Wt 68.0 kg
[~2022-12-24 12:31] MED LIST: ACET-1182 PO; DOCU-299 PO; OMEP-303 PO; PIPE1SOL IV; PRON INH; SUCR1TAB35 PO
--- NOTE | 2022-12-24 12:35 | NUR ---
BIBA TAKEN TO BED 4
[2022-12-24 12:38] VITALS: BP 132/78
[2022-12-24] MEDS ORDERED: cefTRIAXone 1,000 MG in DEXT 5% MINI-BAG PLUS 50 ML IV ONE (12:40)
[2022-12-24] MEDS ORDERED: NACL 0.9% 2,000 ML IV SCH (12:40)
[2022-12-24] MEDS ORDERED: ASCO500T95 PO (12:45)
[2022-12-24] MEDS ORDERED: METF-346 PO (12:45)
[2022-12-24] MEDS ORDERED: MAGN400S60 PO (12:45)
[2022-12-24] MEDS ORDERED: BISA-213 RC (12:45)
[2022-12-24] MEDS ORDERED: OMEP40EC23 PO (12:45)
[2022-12-24] MEDS ORDERED: ZINC220T3 PO (12:45)
[2022-12-24 13:02] LABS: BASOPHILS # (AUTO) 0.1 K/uL (0.00-0.22); BASOPHILS % (AUTO) 0.5 % (0.0-2.0); EOSINOPHILS % (AUTO) 0.1 % (0.0-4.0); HEMATOCRIT 26.9 % (36-52); HEMOGLOBIN 8.9 g/dL (12.0-18.0); LYMPHOCYTES # (AUTO) 1.3 K/uL (2.0-11.5); LYMPHOCYTES % (AUTO) 11.7 % (20.5-51.1); MEAN CORPUSCULAR HEMOGLOBIN 26 pg (27-31); MEAN CORPUSCULAR HGB CONC 33 g/dL (33-37); MEAN CORPUSCULAR VOLUME 77.6 fL (80-94); MONOCYTES # (AUTO) 0.7 K/uL (0.8-1.0); MONOCYTES % (AUTO) 6.3 % (1.7-9.3); NEUTROPHILS # (AUTO) 8.9 K/uL (1.8-7.7); NEUTROPHILS % (AUTO) 81.4 % (42.2-75.2); PLATELET COUNT (AUTO) 351 K/uL (140-450); RED BLOOD CELL COUNT(AUTO) 3.47 MIL/uL (4.20-6.10); RED CELL DISTRIBUTION WIDTH 16.5 % (11.6-13.7)
[2022-12-24 13:26] LABS: LIPASE 402 U/L (73-393)
[2022-12-24 13:31] LABS: ALBUMIN 2.3 g/dL (3.4-5.0); ANION GAP 7.3 (8-16); CARBON DIOXIDE 32.8 mmol/L (21-32); CREATININE 1.4 mg/dL (0.6-1.3); POTASSIUM 4.1 mmol/L (3.5-5.1); TOTAL BILIRUBIN 0.5 mg/dL (0.0-1.0)
--- NOTE | 2022-12-24 13:31 | NUR ---
ASSUMED PATIENT CARE, NURSING ASSESSMENT COMPLETED. SEEN AND EVALUATED BY NASIR GUNN COMPLETED.
[2022-12-24] MEDS ORDERED: METOCLOPRAMIDE 10 MG/2 ML INJ VIAL IVP ONE (13:35)
[2022-12-24] MEDS ORDERED: cefTRIAXone 1,000 MG VIAL ONE (13:36)
[2022-12-24] MEDS ORDERED: ACETAMINOPHEN 325 MG TAB PO ONE (13:40)
--- NOTE | 2022-12-24 13:58 | NUR ---
TO CT VIA [facility].
[2022-12-24] MEDS ORDERED: MAG SULF 2000 MG/WATER PREMIX 50 ML IV PRN (16:15)
[2022-12-24] MEDS ORDERED: POTASSIUM CHLORIDE 10 MEQ TABER PO PRN (16:15)
[2022-12-24] MEDS ORDERED: LORazepam 2 MG/ML VIAL IVP PRN (16:15)
[2022-12-24] MEDS ORDERED: DEXTROSE 50% 50 ML SYR IVP PRN (16:15)
[2022-12-24] MEDS ORDERED: ZOLPIDEM 10 MG TAB PO PRN (16:15)
[2022-12-24] MEDS: NACL 0.9% 1,000 ML IV SCH (16:15)
[2022-12-24] MEDS ORDERED: ACETAMINOPHEN 325 MG TAB PO PRN (16:15)
[2022-12-24] MEDS ORDERED: MORPHINE SULFATE 2 MG/ML SYR IVP PRN (16:15)
[2022-12-24] MEDS ORDERED: ONDANSETRON 4 MG/2 ML VIAL IVP PRN (16:15)
[2022-12-24] MEDS ORDERED: DOCUSATE SODIUM 100 MG GELCAP PO PRN (16:15)
--- NOTE | 2022-12-24 17:05 | NUR ---
DISPO AND MEDICAL DECISION MAKING, INPATIENT ADMISSION FOR FURTHER MANAGEMENT. PATIENT TRANSFERRED TO [facility] VIA [facility], PATIENT CARE REPORT ENDORSED TO MIRTHA. PATIENT FAMILY UPDATED OF INPATIENT ADMISSION. PATIENT STABLE. VS WNL.
[2022-12-24] MEDS: BLOOD GLUCOSE MONITORING 1 DEV DEV FS SCH ×2 (18:50→21:51)
[2022-12-24] MEDS: INSULIN LISPRO SLIDING SCALE 100 UNITS/ML VIAL SUBQ PRN ×2 (18:50→21:53)
--- NOTE | 2022-12-24 19:30 | NUR ---
ENDORSED PT TO BUSINESS LIAISON MANAGER NURSE FOR CONTINUITY OF CARE. PT IN STABLE CONDITION.
[2022-12-24 20:00] VITALS: BP 144/75
[2022-12-24] MEDS: PIPERACILLIN/TAZOBACTAM 3.375 GM in DEXTROSE 5% 50 ML IV SCH (21:51)
[2022-12-25 04:00] VITALS: BP 153/92
[2022-12-25] MEDS: guaiFENesin 20 MG/ML UDC PO PRN ×2 (04:57→20:07)
[2022-12-25] MEDS: PIPERACILLIN/TAZOBACTAM 3.375 GM in DEXTROSE 5% 50 ML IV SCH ×3 (05:00→21:07)
[2022-12-25] MEDS: NACL 0.9% 1,000 ML IV SCH ×2 (05:01→20:51)
[2022-12-25 06:08] LABS: BASOPHILS % (AUTO) 0.4 % (0.0-2.0); EOSINOPHILS # (AUTO) 0.1 K/uL (0-0.4); EOSINOPHILS % (AUTO) 1.6 % (0.0-4.0); HEMOGLOBIN 8.6 g/dL (12.0-18.0); LYMPHOCYTES # (AUTO) 0.5 K/uL (2.0-11.5); LYMPHOCYTES % (AUTO) 13.6 % (20.5-51.1); MEAN CORPUSCULAR HEMOGLOBIN 42 pg (27-31); MEAN CORPUSCULAR HGB CONC 48 g/dL (33-37); MEAN CORPUSCULAR VOLUME 87.6 fL (80-94); MONOCYTES # (AUTO) 0.2 K/uL (0.8-1.0); MONOCYTES % (AUTO) 5.7 % (1.7-9.3); NEUTROPHILS # (AUTO) 3.1 K/uL (1.8-7.7); NEUTROPHILS % (AUTO) 78.7 % (42.2-75.2); PLATELET COUNT (AUTO) 274 K/uL (140-450); RED BLOOD CELL COUNT(AUTO) 2.07 MIL/uL (4.20-6.10); RED CELL DISTRIBUTION WIDTH 16.2 % (11.6-13.7); WHITE BLOOD COUNT (AUTO) 3.9 K/uL (4.8-10.8)
[2022-12-25 06:21] LABS: HEMATOCRIT 18.1 % (36-52)
[2022-12-25 06:27] LABS: ANION GAP 8.8 (8-16); CREATININE 1.1 mg/dL (0.6-1.3); POTASSIUM 3.8 mmol/L (3.5-5.1)
[2022-12-25] MEDS: BLOOD GLUCOSE MONITORING 1 DEV DEV FS SCH ×4 (06:50→21:12)
[2022-12-25] MEDS: INSULIN LISPRO SLIDING SCALE 100 UNITS/ML VIAL SUBQ PRN ×4 (07:00→21:11)
--- NOTE | 2022-12-25 07:25 | NUR ---
RECEIVED PT FROM ELASTIC CUTTER NURSE FOR CONTINUITY OF CARE. PT IN BED AWAKE AOX3. PT COMPLAINS THAT HE HAS BEEN ASKING FOR MEDICATION FOR HICCUPS ALL NIGHT AND HAS NOT RECEIVED ANYTHING. INFORMED PT HE HAS NO MEDICATION FOR HICCUPS ORDERED. INFORMED MEDICAL STUDENT AT BEDSIDE, OF PT REQUESTING SOMETHING FOR HICCUPS. CALL LIGHT WITHIN REACH. ALL SAFETY PRECAUTIONS IN PLACE.
[2022-12-25 08:00] VITALS: BP 154/85
--- NOTE | 2022-12-25 08:00 | NUR ---
Patient's Plan of Care was discussed and reviewed with JEN: BEBETO
--- NOTE | 2022-12-25 08:58 | NUR ---
PATIENT HAS BEEN SCREENED AND CATEGORIZED HIGH NUTRITION RISK. PATIENT WILL BE SEEN WITHIN 1-2 DAYS OF ADMISSION. FNS REFERRAL RECEIVED FOR VOMITING OVER 3 DAYS ON 12/25/22 REVIEWED BY DIANA WOODALL RD
--- NOTE | 2022-12-25 11:10 | NUR ---
BLOOD SUGAR CHECK DONE.
--- NOTE | 2022-12-25 11:29 | NUR ---
ADMINISTERED INSULIN PER SLIDING SCALE.
[2022-12-25] MEDS: METOCLOPRAMIDE 10 MG/2 ML INJ VIAL IVP SCH ×2 (12:16→21:07)
--- NOTE | 2022-12-25 13:12 | NUR ---
INFORMED DR CHRISTINA PT HAS COUGH, PRN COUGH MED NOT YET DUE. BREATHING TREATMENT ORDERED. CALLED RT AND INFORMED THEM OF PRN BREATHING TREATMENT ORDERED.
[2022-12-25] MEDS: ALBUTEROL SULFATE/IPRATROPIU 3 ML SOL IH PRN ×2 (15:23→20:42)
[2022-12-25 16:00] VITALS: BP 136/80
--- NOTE | 2022-12-25 16:19 | NUR ---
12/25/22 RD INITIAL ASSESSMENT COMPLETED PLEASE REFER TO NUTRITION ASSESSMENT UNDER CARE ACTIVITY FOR ESTIMATED NUTRITIONAL NEEDS. 1. RECOMMEND ST EVAL, D/T PT REPORTED CHOKING ON FOOD. 2. IF PT PASSES ST EVAL, RECOMMEND CCHO 60 GRAM DIET WITH TEXTURE MODIFICATION PER ST RECOMMENDATIONS. 3. MONITOR GI, PO INTAKE, AND LAB VALUES. 4. RD TO FOLLOW-UP 2-3 DAYS, HIGH RISK REVIEWED BY DIANA WOODALL RD
--- NOTE | 2022-12-25 17:54 | NUR ---
PT NOTED WITH TEMPERATURE 100, REMOVED EXTRA BLANKETS AND PUT COOLING MEASURES IN PLACE.
--- NOTE | 2022-12-25 18:43 | NUR ---
CHECKED PT TEMPERATURE 98.7, COOLING MEASURES REMAIN IN PLACE.
--- NOTE | 2022-12-25 19:23 | NUR ---
ENDORSED PT TO DISTRIBUTION SPEC NURSE FOR CONTINUITY OF CARE. PT IN STABLE CONDITION.
--- NOTE | 2022-12-25 19:25 | NUR ---
RECEIVED PT FROM AM NURSE FROM AM NURSE FOR CONTINUITY OF CARE. PT IS STABLE
[2022-12-25 20:00] VITALS: BP 146/90
--- NOTE | 2022-12-26 | NUR ---
PATIENT ASLEEP, NO S/SX OF DISTRESS NOTED
--- NOTE | 2022-12-26 04:15 | NUR ---
PATIENT'S BP 168/78. TEXTED MD ,AWAITING RESPONSE
[2022-12-26] MEDS: PIPERACILLIN/TAZOBACTAM 3.375 GM in DEXTROSE 5% 50 ML IV SCH ×3 (04:31→21:47)
[2022-12-26] MEDS: METOCLOPRAMIDE 10 MG/2 ML INJ VIAL IVP SCH ×3 (04:31→21:48)
[2022-12-26] MEDS: INSULIN LISPRO SLIDING SCALE 100 UNITS/ML VIAL SUBQ PRN ×3 (06:32→21:45)
[2022-12-26] MEDS: BLOOD GLUCOSE MONITORING 1 DEV DEV FS SCH ×4 (06:41→21:46)
--- NOTE | 2022-12-26 07:15 | NUR ---
RECEIVED REPORT FROM NIGHT NURSE MARIO FOR CONTINUITY OF CARE. INITIAL ASSESSMENT DONE. ON CONT. O2 THERAPY. PT LATEST BP 155/84 STILL AWAITING FOR MD. REMAINS STABLE. CALL LIGHT KEPT WITHIN REACH. WILL CONTINUE TO MONITOR.
[2022-12-26 07:29] LABS: BASOPHILS % (AUTO) 0.5 % (0.0-2.0); EOSINOPHILS % (AUTO) 1.1 % (0.0-4.0); HEMOGLOBIN 8.1 g/dL (12.0-18.0); LYMPHOCYTES # (AUTO) 0.8 K/uL (2.0-11.5); LYMPHOCYTES % (AUTO) 23.6 % (20.5-51.1); MEAN CORPUSCULAR HEMOGLOBIN 37 pg (27-31); MEAN CORPUSCULAR HGB CONC 44 g/dL (33-37); MEAN CORPUSCULAR VOLUME 84.7 fL (80-94); MONOCYTES # (AUTO) 0.3 K/uL (0.8-1.0); MONOCYTES % (AUTO) 7.6 % (1.7-9.3); NEUTROPHILS # (AUTO) 2.3 K/uL (1.8-7.7); NEUTROPHILS % (AUTO) 67.2 % (42.2-75.2); PLATELET COUNT (AUTO) 274 K/uL (140-450); RED CELL DISTRIBUTION WIDTH 16.1 % (11.6-13.7); WHITE BLOOD COUNT (AUTO) 3.5 K/uL (4.8-10.8)
[2022-12-26 07:38] LABS: ANION GAP 10.9 (8-16); CARBON DIOXIDE 32.9 mmol/L (21-32); CREATININE 1.1 mg/dL (0.6-1.3); POTASSIUM 3.8 mmol/L (3.5-5.1)
[2022-12-26 08:00] VITALS: BP 157/75
--- NOTE | 2022-12-26 08:36 | NUR ---
RECEIVED CALLED FROM LAB SPOKE TO [facility] HCT 18.6. REPORTED TO DR. CHRISTINA NO NEW ORDER, BUT CONTINUE TO MONITOR.
[2022-12-26 08:40] LABS: HEMATOCRIT 18.6 % (36-52)
[2022-12-26] MEDS: NACL 0.9% 1,000 ML IV SCH (11:09)
--- NOTE | 2022-12-26 12:01 | NUR ---
BS CHECK 162. INSULIN WAS GIVEN PER SLIDING SCALE.
--- NOTE | 2022-12-26 12:12 | NUR ---
PT. WITH LOW HUMBERTO SCALE AT MODERATE TO HIGH RISK, CONTINUE TO FOLLOW PRESSURE INJURY PREVENTION INTERVENTIONS. -POSITIONING: TURN AND REPOSITION PATIENT Q 2H OR SOONER USE PILLOWS TO KEEP BONY PROMINENCES FROM DIRECT CONTACT WITH SURFACES USE REPOSITIONING WEDGES TO PROVIDE 30-DEGREE ANGLE FOR SIDE LYING POSITIONS OFFLOADING OR FOAM DRESSING TO ALL TUBING TO PREVENT MEDICAL DEVICES RELATED PRESSURE INJURY -RE-EVALUATING AND MANAGING INCONTINENCE MONITOR SKIN CONDITION DURING POSITION CHANGE DO NOT MASSAGE REDNESS, BONY PROMINENCES FREQUENT DIYA-CARE AND PROVIDE BARRIER CREAMS PRN IF SOILING MOISTURE CONTROL BY OFFER BED DOSS/URINAL /ABSORBENT PAD TO WICK AND HOLD MOISTURE KEEP SKIN DRY AND PROTECT FROM FRICTION -MANAGE FRICTION/SHEAR/MOBILITY KEEP HOB AT THE LOWEST LEVEL OF ELEVATION NO MORE THAN 30 DEGREE UNLESS OTHERWISE CONTRAINDICATED USE LIFT SHEET OR TRANSFER DEVICE TO MOVE PATIENT AND PREVENT LATERAL SHEER. PROTECT HEELS, ELBOWS BONY PROMINENCES WITH SKIN BERRIES OR FOAM DRESSING IF EXPOSED TO FRICTION OFFLOAD BILATERAL HEELS BY PLACING PILLOWS UNDER CALVES AT ALL TIMES, UNLESS OTHERWISE CONTRAINDICATED -PRESSURE REDISTRIBUTION SURFACE THERAPY EDDIE ISOFLEX MATTRESS -NUTRITION: PLEASE FOLLOW RD RECOMMENDATIONS AND OFFER NUTRITION SUPPLEMENTS IF ORDERED. PLEASE CONTACT WOUND CARE NURSE FOR ANY QUESTION AND CHANGE OF WOUND CONDITION.
[2022-12-26] MEDS ORDERED: PROMETHAZINE 25 MG TAB PO SCH (13:00)
--- NOTE | 2022-12-26 15:08 | NUR ---
SEEN BY ST WITH NEW RECOMMENDATION MECHANICAL SOFT, GROUND TEXTURE, THIN LIQUID. DR. CHRISTINA NOTIFIED, AGREED AND GIVE ORDER.
[2022-12-26 16:00] VITALS: BP 154/81
--- NOTE | 2022-12-26 17:20 | NUR ---
BS CHECK 144. NO COVERAGE NEEDED.
--- NOTE | 2022-12-26 19:22 | NUR ---
BEDSIDE REPORT GIVEN TO MARIO FOR CONTINUITY OF CARE. REMAINS STABLE.
--- NOTE | 2022-12-26 19:25 | NUR ---
RECEIVED PT FROM AM NURSE FOR CONTINUITY OF CARE.PT IS STABLE
[2022-12-26] MEDS: hydrALAZINE 10 MG TAB PO SCH (21:49)
--- NOTE | 2022-12-27 | NUR ---
PATIENT ASLEEP, NO DISTRESS NOTED
[2022-12-27] MEDS: NACL 0.9% 1,000 ML IV SCH ×2 (01:23→15:24)
[2022-12-27] MEDS: guaiFENesin 20 MG/ML UDC PO PRN ×2 (01:48→11:00)
[2022-12-27 04:00] VITALS: BP 127/74
[2022-12-27] MEDS: PIPERACILLIN/TAZOBACTAM 3.375 GM in DEXTROSE 5% 50 ML IV SCH ×3 (04:46→22:01)
[2022-12-27] MEDS: METOCLOPRAMIDE 10 MG/2 ML INJ VIAL IVP SCH ×3 (04:47→22:02)
[2022-12-27] MEDS: INSULIN LISPRO SLIDING SCALE 100 UNITS/ML VIAL SUBQ PRN ×5 (06:20→22:08)
[2022-12-27 07:06] LABS: BASOPHILS % (AUTO) 0.5 % (0.0-2.0); EOSINOPHILS % (AUTO) 1.3 % (0.0-4.0); HEMOGLOBIN 8.2 g/dL (12.0-18.0); LYMPHOCYTES # (AUTO) 0.9 K/uL (2.0-11.5); MEAN CORPUSCULAR HEMOGLOBIN 31 pg (27-31); MEAN CORPUSCULAR HGB CONC 37 g/dL (33-37); MEAN CORPUSCULAR VOLUME 84.3 fL (80-94); MONOCYTES # (AUTO) 0.3 K/uL (0.8-1.0); MONOCYTES % (AUTO) 7.9 % (1.7-9.3); NEUTROPHILS # (AUTO) 2.2 K/uL (1.8-7.7); NEUTROPHILS % (AUTO) 64.3 % (42.2-75.2); PLATELET COUNT (AUTO) 282 K/uL (140-450); RED CELL DISTRIBUTION WIDTH 16.2 % (11.6-13.7); WHITE BLOOD COUNT (AUTO) 3.5 K/uL (4.8-10.8)
[2022-12-27 07:15] LABS: CARBON DIOXIDE 33.3 mmol/L (21-32); CREATININE 0.9 mg/dL (0.6-1.3); POTASSIUM 3.3 mmol/L (3.5-5.1)
--- NOTE | 2022-12-27 07:20 | NUR ---
RECEIVED REPORT FROM NIGHT NURSE MARIO FOR CONTINUITY OF CARE. INITIAL ASSESSMENT DONE. IVF INFUSING WELL. CALL LIGHT KEPT WITHIN REACH. WILL CONTINUE TO MONITOR.
[2022-12-27] MEDS: ALBUTEROL SULFATE/IPRATROPIU 3 ML SOL IH PRN ×2 (07:27→13:56)
[2022-12-27] MEDS: BLOOD GLUCOSE MONITORING 1 DEV DEV FS SCH ×4 (07:30→22:00)
--- NOTE | 2022-12-27 07:44 | NUR ---
Patient's Plan of Care was discussed and reviewed with TINSMITH HELPER:
[2022-12-27 08:00] VITALS: BP 158/95
[2022-12-27] MEDS: PANTOPRAZOLE 40 MG INJ VIAL IVP SCH (09:00)
[2022-12-27] MEDS ORDERED: MAG SULF 2000 MG/WATER PREMIX 50 ML IV SCH (09:35)
[2022-12-27] MEDS: hydrALAZINE 10 MG TAB PO SCH ×2 (10:00→22:04)
--- NOTE | 2022-12-27 10:00 | NUR ---
SCHEDULED MEDICATIONS GIVEN. TOLERATING WELL. PRN K-DUR WAS GIVEN FOR LOW POTASSIUM.
[2022-12-27] MEDS: SUCRALFATE 1 GM TAB PO SCH ×3 (13:48→22:04)
--- NOTE | 2022-12-27 13:57 | NUR ---
PATIENT C/O SOB ASSESSMENT DONE HHN PRN THERAPY GIVEN ENCOURAGED PATIENT FOR INTERMITTENT DEEP BREATHING AND COUGH
--- NOTE | 2022-12-27 14:57 | NUR ---
DC PLANNING ASSESSMENT COMPLETE SEE ASSESSMENT FOR DETAILS [facility] REPORTS DC PLAN IS FOR PT TO RETURN TO [facility], TO CONTINUE SKILLED CARE OF PT/OT , ONCE MEDICALLY STABLE Addendum: 12/27/22 at 1458 by Srheyas Wilkinson SS Amended: Links added. Addendum: 12/28/22 at 1422 by Shreyas Wilkinson SS SW STOPPED BY PATIENT SISTER, DIEGO AND PT. BOTH ARE REQUESTING ALTERNATIVE SNF PLACEMENT (FAMILY REQUESTED [facility] OR [facility]) . SPOKE WITH PT AND SISTER AND EXPLAINED HOW PLACEMENT IS TYPICALLY ARRANGED. ADVISED BOTH THAT SW WOULD ENDORSE TO CM. SW ENDORSED TO CM.
[2022-12-27 16:00] VITALS: BP 140/61
--- NOTE | 2022-12-27 16:22 | NUR ---
BS CHECK 231. INSULIN WAS GIVEN PER SLIDING SCALE.
--- NOTE | 2022-12-27 16:39 | NUR ---
P.T. NOTES P.T. EVAL COMPLETED; REFER TO EVAL FOR DETAILS.
--- NOTE | 2022-12-27 17:23 | NUR ---
SCHEDULED MEDICATION GIVEN. TOLERATING WELL.
--- NOTE | 2022-12-27 19:25 | NUR ---
BEDSIDE REPORT GIVEN TO NIGHT NURSE VIGNESH FOR CONTINUITY OF CARE. REMAINS STABLE.
[2022-12-27] MEDS: methylPREDNISolone SS 40 MG/ML VIAL IVP SCH (22:03)
[2022-12-27] MEDS: metFORMIN 500 MG TAB PO SCH (22:05)
[2022-12-28] MEDS: NACL 0.9% 1,000 ML IV SCH (05:16)
[2022-12-28] MEDS: PIPERACILLIN/TAZOBACTAM 3.375 GM in DEXTROSE 5% 50 ML IV SCH ×2 (05:17→13:00)
[2022-12-28] MEDS: METOCLOPRAMIDE 10 MG/2 ML INJ VIAL IVP SCH ×2 (05:18→13:00)
--- NOTE | 2022-12-28 07:01 | NUR ---
receive the patient from the night custodian rin rm 120A aox3 admitting diagnosis of pneumonia . will continue to monitor
[2022-12-28] MEDS: BLOOD GLUCOSE MONITORING 1 DEV DEV FS SCH ×2 (07:20→11:30)
[2022-12-28 07:28] LABS: BASOPHILS % (AUTO) 0.2 % (0.0-2.0); HEMATOCRIT 20.6 % (36-52); HEMOGLOBIN 8.6 g/dL (12.0-18.0); LYMPHOCYTES # (AUTO) 0.8 K/uL (2.0-11.5); LYMPHOCYTES % (AUTO) 32.6 % (20.5-51.1); MEAN CORPUSCULAR HEMOGLOBIN 36 pg (27-31); MEAN CORPUSCULAR HGB CONC 42 g/dL (33-37); MEAN CORPUSCULAR VOLUME 85.1 fL (80-94); MONOCYTES # (AUTO) 0.1 K/uL (0.8-1.0); MONOCYTES % (AUTO) 4.1 % (1.7-9.3); NEUTROPHILS # (AUTO) 1.5 K/uL (1.8-7.7); NEUTROPHILS % (AUTO) 63.1 % (42.2-75.2); PLATELET COUNT (AUTO) 302 K/uL (140-450); RED BLOOD CELL COUNT(AUTO) 2.43 MIL/uL (4.20-6.10); WHITE BLOOD COUNT (AUTO) 2.3 K/uL (4.8-10.8)
[2022-12-28] MEDS: INSULIN LISPRO SLIDING SCALE 100 UNITS/ML VIAL SUBQ PRN ×2 (07:31→17:04)
[2022-12-28 08:00] VITALS: BP 166/96
[2022-12-28] MEDS: ALBUTEROL SULFATE/IPRATROPIU 3 ML SOL IH PRN (08:00)
[2022-12-28 08:08] LABS: ANION GAP 12.3 (8-16); CARBON DIOXIDE 29.5 mmol/L (21-32); CREATININE 0.9 mg/dL (0.6-1.3); POTASSIUM 3.8 mmol/L (3.5-5.1)
[2022-12-28] MEDS ORDERED: APR10 PO (09:19)
[2022-12-28] MEDS ORDERED: METH4TAB1 PO (09:19)
[2022-12-28] MEDS ORDERED: AZIT250T11 PO (09:19)
[2022-12-28] MEDS: hydrALAZINE 10 MG TAB PO SCH (09:49)
[2022-12-28] MEDS: methylPREDNISolone SS 40 MG/ML VIAL IVP SCH (09:49)
[2022-12-28] MEDS: PANTOPRAZOLE 40 MG INJ VIAL IVP SCH (09:49)
[2022-12-28] MEDS: SUCRALFATE 1 GM TAB PO SCH ×2 (09:49→13:00)
[2022-12-28] MEDS: metFORMIN 500 MG TAB PO SCH (09:49)
--- NOTE | 2022-12-28 15:12 | NUR ---
PHYSICAL THERAPY CO-SIGN The Physical Therapy Progress Notes documented by Combination Window Installer have been reviewed. Reviewed/Co-Signed by: Irene Spence Documentation Done by: JAYLA ANGEL PTA Addendum: 12/28/22 at 1513 by Irene Spence PT Amended: Links added.
--- NOTE | 2022-12-28 15:32 | NUR ---
DC PLANNING: SPOKE WITH PT'S DAUGHTER CIPRIANO DISCUSSED THE ISSUES AND CONCERN ABOUT [facility] REGARDING MISSING MEDICATION . CALLED [facility] SPOKE WITH MONY DISCUSSED THE CONCERN FOR MEDICATION MONY CALLED SISTER SOLVED THE PROBLEM AND CIPRIANO AGREED FOR PATIENT TO GO BACK TO [facility]. PATIENT CAN GO TO ROOM 37 A # TO GIVE REPORT [phone]. ARRANGED TRANSPORT WITH [facility] TRANSPORT PICK UPTIME 6PM NOTIFIED JOHNSON FOWLER CM TO FOLLOW.
--- NOTE | 2022-12-28 15:35 | NUR ---
12/28/22 RD FOLLOW UP COMPLETED PLEASE REFER TO NUTRITION ASSESSMENT UNDER CARE ACTIVITY FOR ESTIMATED NUTRITIONAL NEEDS. 1. RECOMMEND ADDING CCHO 60 GRAM TO MECHANICAL SOFT DIET 2. MONITOR GASTRIC RESIDUALS AND LAB VALUES. 3. RD TO FOLLOW-UP 7 DAYS, LOW RISK REVIEWED BY DIANA WOODALL RD
[2022-12-28 16:00] VITALS: BP 172/87
[2022-12-28 17:26] VITALS: BP 128/78
--- NOTE | 2022-12-28 17:30 | NUR ---
gave report to kash Sinclair [phone] [facility]
--- NOTE | 2022-12-28 19:27 | NUR ---
will endorse to night filler rn . will be transfer to [facility]
== END 2022-12-28 19:50 | DRG 871 ==
LOC: MED 12:31 → MMU 16:15 → MTU 16:32
PROVIDERS: ADMIT Family Medicine; ATTEND Family Medicine
DX: A41.9 Sepsis, unspecified organism (principal); E43 Unspecified severe protein-calorie malnutrition; J18.9 Pneumonia, unspecified organism; N17.0 Acute kidney failure with tubular necrosis; J96.00 Acute respiratory failure, unspecified whether with hypoxia or hypercapnia; Z68.24 Body mass index [BMI] 24.0-24.9, adult; E78.00 Pure hypercholesterolemia, unspecified; N20.0 Calculus of kidney; K44.9 Diaphragmatic hernia without obstruction or gangrene; E83.42 Hypomagnesemia; E87.6 Hypokalemia; D64.9 Anemia, unspecified; I10 Essential (primary) hypertension; E11.9 Type 2 diabetes mellitus without complications; Z87.01 Personal history of pneumonia (recurrent); Z79.1 Long term (current) use of non-steroidal anti-inflammatories (NSAID); Z79.899 Other long term (current) drug therapy; Z87.11 Personal history of peptic ulcer disease
CPT/HCPCS: 36415; 71045; 80048; 80053; 82009; 82550; 82948; 83605; 83690; 83735; 83880; 84484; 85025; 87040; 87081; 92526; 93005; 94640; 96361; 96365; 96375; 97112; 97116; 97530; 99291; C9113; J0696; J1815; J2060; J2270; J2543; J2765; J2920; J3475; J7060; Q0092; Q9967

== ENCOUNTER 2023-02-09 09:07 | Emergency (ER) | payer OTHER ==
[~2023-02-09] VITALS: Ht 157.5 cm; Wt 64.0 kg
[~2023-02-09 09:07] MED LIST changes: +APR10 PO; +ASCO500T95 PO; +AZIT250T11 PO; +BISA-213 RC; +MAGN400S60 PO; +METF-346 PO; +METH4TAB1 PO; +OMEP40EC23 PO; -PIPE1SOL IV; +ZINC220T3 PO
[2023-02-09 09:13] VITALS: BP 193/106
--- NOTE | 2023-02-09 09:24 | NUR ---
HERE FOR URINARY RETENTION, LAST TIME HE VOIDED YESTERDAY AFTERNOON.
--- NOTE | 2023-02-09 09:52 | NUR ---
FOELY IN PLACE, 900 CC OF CLEAR YELLOW URINE IN RIBERA BAG, ST ON CM, HR 130, ELEV BP AWARE
[2023-02-09] MEDS ORDERED: NACL 0.9% 1,000 ML IV ONE ×2 (09:55→11:25)
[2023-02-09 09:57] LABS: BASOPHILS # (AUTO) 0.1 K/uL (0.00-0.22); BASOPHILS % (AUTO) 0.6 % (0.0-2.0); EOSINOPHILS # (AUTO) 0.1 K/uL (0-0.4); EOSINOPHILS % (AUTO) 0.6 % (0.0-4.0); HEMATOCRIT 28.9 % (36-52); HEMOGLOBIN 9.2 g/dL (12.0-18.0); LYMPHOCYTES # (AUTO) 0.9 K/uL (2.0-11.5); LYMPHOCYTES % (AUTO) 8.4 % (20.5-51.1); MEAN CORPUSCULAR HEMOGLOBIN 21 pg (27-31); MEAN CORPUSCULAR HGB CONC 32 g/dL (33-37); MEAN CORPUSCULAR VOLUME 66.7 fL (80-94); MONOCYTES # (AUTO) 0.6 K/uL (0.8-1.0); MONOCYTES % (AUTO) 5.7 % (1.7-9.3); NEUTROPHILS # (AUTO) 8.9 K/uL (1.8-7.7); NEUTROPHILS % (AUTO) 84.7 % (42.2-75.2); PLATELET COUNT (AUTO) 466 K/uL (140-450); RED BLOOD CELL COUNT(AUTO) 4.33 MIL/uL (4.20-6.10); RED CELL DISTRIBUTION WIDTH 18.3 % (11.6-13.7); WHITE BLOOD COUNT (AUTO) 10.5 K/uL (4.8-10.8)
[2023-02-09 10:21] LABS: APPEARANCE,URINE CLEAR (CLEAR); BILIRUBIN,URINE NEGATIVE (NEGATIVE); BLOOD, URINE 3+ (NEGATIVE); COLOR,URINE YELLOW (YELLOW); LEUKOCYTE ESTERASE ,URINE NEGATIVE (NEGATIVE); NITRITE, URINE NEGATIVE (NEGATIVE); UGLUCOSE NEGATIVE (NEGATIVE)
[2023-02-09 10:28] LABS: ALBUMIN 3.1 g/dL (3.4-5.0); ANION GAP 15.2 (8-16); ASPARTATE AMINOTRANSFERASE 19 U/L (15-37); CARBON DIOXIDE 27.4 mmol/L (21-32); CHLORIDE 97 mmol/L (98-107); CREATININE 1.1 mg/dL (0.6-1.3); GFR ARICAN-AMERICAN 86 mL/min (>90); GLUCOSE 202 mg/dL (74-106); POTASSIUM 3.6 mmol/L (3.5-5.1); SODIUM SERUM 136 mmol/L (136-145); TOTAL BILIRUBIN 0.3 mg/dL (0.0-1.0); UREA NITROGEN, BLOOD 20 mg/dL (7-18)
[2023-02-09 10:38] LABS: RBC,URINE 80-100 /HPF (0-5); WBC,URINE 0-5 /HPF (0-5)
--- NOTE | 2023-02-09 11:00 | NUR ---
SLEEPING, NO AC DISTRESS, RIBERA CATH IN PLACE, 1200 CC OF URINE IN RIBERA BAG, O2 SAT 98% RA, SR UP TIMES 2
--- NOTE | 2023-02-09 13:50 | NUR ---
LEG BAG IN PLACE, RIBERA BAG DC'D, PT WILL BE DC HOME. FAMILY TO BE CONTACTED
[2023-02-09 14:42] VITALS: BP 142/86
== END 2023-02-09 13:50 | disposition home or self-care (01) ==
LOC: MED 09:07
DX: R33.9 Retention of urine, unspecified (principal); E11.9 Type 2 diabetes mellitus without complications; I10 Essential (primary) hypertension; K21.9 Gastro-esophageal reflux disease without esophagitis; Z79.899 Other long term (current) drug therapy; Z79.2 Long term (current) use of antibiotics
CPT/HCPCS: 36415; 51702; 80053; 81001; 84484; 85025; 93005; 96360; 96361; 99284; J7030

== ENCOUNTER 2023-02-12 17:29 | Emergency (ER) | payer OTHER ==
[~2023-02-12] VITALS: Ht 172.7 cm; Wt 72.6 kg
[2023-02-12 18:03] VITALS: BP 143/57
--- NOTE | 2023-02-12 18:40 | NUR ---
67YO MALE PT C/O CATH LEAK XTODAY. STATES CATH WAS RECENTLY PLACED HERE IN ER . PT UNABLE TO RECALL REASON FOR OR DATE OF CATH PLACED. 16FR RIBERA CATH IN PLACE. NO ACTIVE LEAKING AT THIS TIME. DENIES PAIN, N/V/D, FEVER OR CHILLS. PT AAOX4, HOB POSITIONED PER COMFORT HX: DIABETES, HTN NKA
--- NOTE | 2023-02-12 19:19 | NUR ---
REPORT GIVEN TO JACK LI. TRANSFER OF CARE AT THIS TIME
--- NOTE | 2023-02-12 19:40 | NUR ---
UA collected and sent to lab
[2023-02-12 19:51] LABS: APPEARANCE,URINE CLEAR (CLEAR); BILIRUBIN,URINE NEGATIVE (NEGATIVE); BLOOD, URINE 3+ (NEGATIVE); COLOR,URINE YELLOW (YELLOW); LEUKOCYTE ESTERASE ,URINE NEGATIVE (NEGATIVE); NITRITE, URINE NEGATIVE (NEGATIVE); UGLUCOSE NEGATIVE (NEGATIVE)
--- NOTE | 2023-02-12 20:14 | NUR ---
brother called for update. Forrest [phone]. pt gave consent to update brother.
[2023-02-12 20:18] LABS: RBC,URINE 20-50 /HPF (0-5)
--- NOTE | 2023-02-12 20:32 | NUR ---
canela cath removed successfully
[2023-02-12] MEDS ORDERED: NACL 0.9% 2,000 ML IV ONE (20:40)
[2023-02-12 20:45] VITALS: BP 185/93
[2023-02-12 21:03] LABS: BASOPHILS # (AUTO) 0.1 K/uL (0.00-0.22); BASOPHILS % (AUTO) 0.6 % (0.0-2.0); EOSINOPHILS # (AUTO) 0.7 K/uL (0-0.4); EOSINOPHILS % (AUTO) 7.9 % (0.0-4.0); HEMATOCRIT 27.4 % (36-52); HEMOGLOBIN 8.7 g/dL (12.0-18.0); LYMPHOCYTES # (AUTO) 2.3 K/uL (2.0-11.5); LYMPHOCYTES % (AUTO) 24.2 % (20.5-51.1); MEAN CORPUSCULAR HEMOGLOBIN 21 pg (27-31); MEAN CORPUSCULAR HGB CONC 32 g/dL (33-37); MEAN CORPUSCULAR VOLUME 67.4 fL (80-94); MONOCYTES # (AUTO) 0.8 K/uL (0.8-1.0); MONOCYTES % (AUTO) 8.4 % (1.7-9.3); NEUTROPHILS # (AUTO) 5.5 K/uL (1.8-7.7); NEUTROPHILS % (AUTO) 58.9 % (42.2-75.2); PLATELET COUNT (AUTO) 488 K/uL (140-450); RED BLOOD CELL COUNT(AUTO) 4.06 MIL/uL (4.20-6.10); RED CELL DISTRIBUTION WIDTH 17.8 % (11.6-13.7); WHITE BLOOD COUNT (AUTO) 9.3 K/uL (4.8-10.8)
[2023-02-12 21:16] LABS: ALBUMIN 3.1 g/dL (3.4-5.0); ANION GAP 10.8 (8-16); CREATININE 1.1 mg/dL (0.6-1.3); POTASSIUM 3.8 mmol/L (3.5-5.1); TOTAL BILIRUBIN 0.2 mg/dL (0.0-1.0)
[2023-02-12] MEDS ORDERED: cefTRIAXone 1,000 MG VIAL ONE (21:41)
[2023-02-12] MEDS ORDERED: TAMS0.4C96 PO (21:46)
[2023-02-12] MEDS ORDERED: CEPH250C16 PO (21:46)
--- NOTE | 2023-02-12 21:52 | NUR ---
spoke with brother Forrest and updated brother per pt consent.
--- NOTE | 2023-02-12 22:54 | NUR ---
Patient discharged with v/s stable. Written and verbal after care instructions given and explained. Patient alert, oriented and verbalized understanding of instructions. Ambulatory with steady gait. All questions addressed prior to discharge. ID band removed. Patient advised to follow up with PMD. Rx of cephalexin and tamsulosin hci given. Opportunity to ask questions provided and answered. brother chely picked up pt in [facility]. pt ambulated with assistance of walker
--- NOTE | 2023-02-12 23:35 | NUR ---
The patient's care was reviewed and supervised by Kaitlin Mora RN, RN.
== END 2023-02-12 22:54 | disposition home or self-care (01) ==
LOC: MED 17:29
DX: N39.0 Urinary tract infection, site not specified (principal); R33.9 Retention of urine, unspecified; E11.9 Type 2 diabetes mellitus without complications; I10 Essential (primary) hypertension; Z79.899 Other long term (current) drug therapy; Z79.2 Long term (current) use of antibiotics
CPT/HCPCS: 36415; 80053; 81001; 83605; 85025; 87040; 87086; 96365; 99285; J0696; J7030

== ENCOUNTER 2023-02-13 11:34 | Inpatient (IN) | payer OTHER ==
[~2023-02-13] VITALS: Ht 170.2 cm; Wt 71.7 kg
[~2023-02-13 11:34] MED LIST changes: +CEPH250C16 PO; +TAMS0.4C96 PO
[2023-02-13 11:41] VITALS: BP 180/92
--- NOTE | 2023-02-13 11:54 | NUR ---
CODE BRAIN INITIATED BY DR SARMIENTO
--- NOTE | 2023-02-13 12:00 | NUR ---
Patient placed on hospital monitor, transported to CT by kasandra accompanied by primary RN
--- NOTE | 2023-02-13 12:32 | NUR ---
TELENEURO REQUEST SUBMITTED CONNECT ID [id number]
--- NOTE | 2023-02-13 12:45 | NUR ---
Francis sterling called into ED, call transferred to Dr. Pike
[2023-02-13 13:16] LABS: BASOPHILS # (AUTO) 0.1 K/uL (0.00-0.22); BASOPHILS % (AUTO) 0.7 % (0.0-2.0); EOSINOPHILS # (AUTO) 0.6 K/uL (0-0.4); EOSINOPHILS % (AUTO) 6.5 % (0.0-4.0); HEMATOCRIT 26.6 % (36-52); HEMOGLOBIN 8.5 g/dL (12.0-18.0); LYMPHOCYTES # (AUTO) 1.6 K/uL (2.0-11.5); LYMPHOCYTES % (AUTO) 18.5 % (20.5-51.1); MEAN CORPUSCULAR HEMOGLOBIN 23 pg (27-31); MEAN CORPUSCULAR HGB CONC 32 g/dL (33-37); MEAN CORPUSCULAR VOLUME 70.8 fL (80-94); MONOCYTES # (AUTO) 0.8 K/uL (0.8-1.0); MONOCYTES % (AUTO) 9.7 % (1.7-9.3); NEUTROPHILS # (AUTO) 5.6 K/uL (1.8-7.7); NEUTROPHILS % (AUTO) 64.6 % (42.2-75.2); PLATELET COUNT (AUTO) 425 K/uL (140-450); RED BLOOD CELL COUNT(AUTO) 3.76 MIL/uL (4.20-6.10); RED CELL DISTRIBUTION WIDTH 17.7 % (11.6-13.7); WHITE BLOOD COUNT (AUTO) 8.7 K/uL (4.8-10.8)
[2023-02-13 13:24] LABS: APPEARANCE,URINE CLEAR (CLEAR); BILIRUBIN,URINE NEGATIVE (NEGATIVE); BLOOD, URINE TRACE-I (NEGATIVE); COLOR,URINE YELLOW (YELLOW); LEUKOCYTE ESTERASE ,URINE NEGATIVE (NEGATIVE); NITRITE, URINE NEGATIVE (NEGATIVE); UGLUCOSE NEGATIVE (NEGATIVE)
[2023-02-13] MEDS ORDERED: MORPHINE SULFATE 2 MG/ML SYR IVP PRN (13:25)
[2023-02-13] MEDS ORDERED: ACETAMINOPHEN 325 MG TAB PO PRN (13:25)
[2023-02-13] MEDS ORDERED: ZOLPIDEM 10 MG TAB PO PRN (13:25)
[2023-02-13] MEDS ORDERED: ONDANSETRON 4 MG/2 ML VIAL IVP PRN (13:25)
[2023-02-13] MEDS ORDERED: DOCUSATE SODIUM 100 MG GELCAP PO PRN (13:25)
[2023-02-13] MEDS ORDERED: LORazepam 2 MG/ML VIAL IVP PRN (13:25)
[2023-02-13 13:30] LABS: PROTHROMBIN TIME 11.2 secs (10.8-13.4)
[2023-02-13 13:37] LABS: RBC,URINE 0-5 /HPF (0-5); WBC,URINE 0-5 /HPF (0-5)
[2023-02-13 13:38] LABS: ALBUMIN 2.7 g/dL (3.4-5.0); ANION GAP 10.7 (8-16); ASPARTATE AMINOTRANSFERASE 16 U/L (15-37); CARBON DIOXIDE 30.7 mmol/L (21-32); CHLORIDE 97 mmol/L (98-107); GFR ARICAN-AMERICAN 96 mL/min (>90); GLUCOSE 176 mg/dL (74-106); POTASSIUM 3.4 mmol/L (3.5-5.1); SODIUM SERUM 135 mmol/L (136-145); TOTAL BILIRUBIN 0.2 mg/dL (0.0-1.0); UREA NITROGEN, BLOOD 13 mg/dL (7-18)
[2023-02-13 13:43] LABS: BARBITURATE, URINE NEGATIVE ng/ml (NEG <=200); BENZODIAZEPINE, URINE NEGATIVE ng/mL (NEG <=200); CANNABINOID, URINE NEGATIVE ng/mL (NEG <=50); COCAINE, URINE NEGATIVE ng/mL (NEG <=300); OPIATE, URINE NEGATIVE ng/mL (NEG <=2000); PHENCYCLIDINE SCREEN,URINE NEGATIVE ng/mL (NEG <=25)
--- NOTE | 2023-02-13 15:32 | NUR ---
Report given to receiving RN. VSS. Pt aware and agreeable to admission. Pt transported via gurney with all belongings.
[2023-02-13 16:30] VITALS: BP 180/82
[2023-02-13] MEDS ORDERED: DEXTROSE 50% 50 ML SYR IVP PRN (17:10)
--- NOTE | 2023-02-13 18:07 | NUR ---
RECEIVED PT FROM ED FOR RIGHT SIDED BODY NUMBNESS/WEAKNESS. VSS, AFEBRILE, DENIES PAIN OR DISCOMFORT. A/OX4. RA. SBP 180S, AWARE. ST ON TELE. AMBULATORY WITH FWW. SKIN INTACT. MUSEUM CURATOR CLEARED FOR REGULAR DIET. AWAITING MRI. PIV C/D/I. ALL NEEDS MET, SAFETY AND COMFORT MEASURES MAINTAINED, CALL LIGHT WITHIN REACH.
--- NOTE | 2023-02-13 18:56 | NUR ---
P.T. NOTES P.T. EVAL COMPLETED; REFER TO EVAL FOR DETAILS.
--- NOTE | 2023-02-13 19:20 | NUR ---
RECEIVED PATIENT FROM AM NURSE FOR CONTINUITY OF CARE.PT IS STABLE
[2023-02-13 20:00] VITALS: BP 177/82
[2023-02-13] MEDS: POTASSIUM CHLORIDE 10 MEQ TABER PO PRN (21:03)
[2023-02-13] MEDS: INSULIN LISPRO SLIDING SCALE 100 UNITS/ML VIAL SUBQ PRN (21:05)
[2023-02-13] MEDS: BLOOD GLUCOSE MONITORING 1 DEV DEV FS SCH (21:07)
[2023-02-13] MEDS: hydrALAZINE 20 MG/ML VIAL IVP PRN (21:29)
[2023-02-14] VITALS: BP 152/78
[2023-02-14 04:00] VITALS: BP 156/88
[2023-02-14 05:51] LABS: BASOPHILS # (AUTO) 0.1 K/uL (0.00-0.22); BASOPHILS % (AUTO) 0.9 % (0.0-2.0); EOSINOPHILS # (AUTO) 0.8 K/uL (0-0.4); EOSINOPHILS % (AUTO) 9.9 % (0.0-4.0); HEMATOCRIT 27.9 % (36-52); HEMOGLOBIN 9.1 g/dL (12.0-18.0); LYMPHOCYTES # (AUTO) 1.6 K/uL (2.0-11.5); LYMPHOCYTES % (AUTO) 19.2 % (20.5-51.1); MEAN CORPUSCULAR HEMOGLOBIN 22 pg (27-31); MEAN CORPUSCULAR HGB CONC 33 g/dL (33-37); MONOCYTES # (AUTO) 0.8 K/uL (0.8-1.0); NEUTROPHILS # (AUTO) 5.2 K/uL (1.8-7.7); PLATELET COUNT (AUTO) 475 K/uL (140-450); RED BLOOD CELL COUNT(AUTO) 4.16 MIL/uL (4.20-6.10); RED CELL DISTRIBUTION WIDTH 18.1 % (11.6-13.7); WHITE BLOOD COUNT (AUTO) 8.6 K/uL (4.8-10.8)
[2023-02-14] MEDS: BLOOD GLUCOSE MONITORING 1 DEV DEV FS SCH ×4 (06:38→20:12)
[2023-02-14 07:06] LABS: ANION GAP 10.6 (8-16); CARBON DIOXIDE 30.8 mmol/L (21-32); CREATININE 0.8 mg/dL (0.6-1.3); POTASSIUM 3.4 mmol/L (3.5-5.1)
--- NOTE | 2023-02-14 07:15 | NUR ---
ENDORSED PATIENT TO AM NURSE FOR CONTINUITY OF CARE. PT IS STABLE
--- NOTE | 2023-02-14 07:16 | NUR ---
RECEIVED REPORT FROM NIGHTSHIFT NURSE. PT IS AWAKE, RESTING IN BED. AOX4, NO SIGNS OF DISTRESS. ON RM AIR. IV TO LEFT AC, 18G, SALINE LOCK. SKIN INTACT. PT REPORTS RIGHT SIDED NUMBNESS/WEAKNESS, BUT NO PAIN. REORIENTED PT TO CALL LIGHT. BED IN LOWEST POSITION, 2 SIDE RAILS UP, CALL LIGHT PLACED WITHIN REACH. NO FURTHER NEEDS ARE TO BE MET AT THIS TIME, WILL CONTINUE WITH PT CARE.
[2023-02-14 08:00] VITALS: BP 168/94
[2023-02-14] MEDS: ASPIRIN 325 MG TABEC PO SCH (08:44)
[2023-02-14] MEDS: TAMSULOSIN 0.4 MG CAP PO SCH (08:44)
[2023-02-14] MEDS: ATORVASTATIN 20 MG TAB PO SCH (08:44)
[2023-02-14] MEDS: hydrALAZINE 20 MG/ML VIAL IVP PRN (08:45)
[2023-02-14] MEDS: POTASSIUM CHLORIDE 10 MEQ TABER PO PRN (08:51)
[2023-02-14] MEDS ORDERED: ASPIRIN 81 MG TAB.CHEW PO SCH (09:00)
--- NOTE | 2023-02-14 09:10 | NUR ---
PATIENT HAS BEEN SCREENED AND CATEGORIZED HIGH NUTRITION RISK. PATIENT WILL BE SEEN WITHIN 1-2 DAYS OF ADMISSION. FNS CONSULT RECEIVED FOR FAILURE TO THRIVE ON 02/14/23. REVIEWED BY DIANA WOODALL RD
[2023-02-14 12:00] VITALS: BP 104/68
--- NOTE | 2023-02-14 12:00 | NUR ---
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 MRI CALLED AND ADVISED US PATIENT IS CLAUSTROPHOBIC.CHARGE NURSE SPOKE WITH PATIENT IN [place] AND PATIENT SAID IT'S FINE TO HAVE THE TEST WITHOUT PO SEDATION.TENTATIVE DC PLAN TO HOME IF MRI IS NEGATIVE AND PATIENT RESPONDS TO TX.CM TO FOLLOW. Addendum: 02/15/23 at 0844 by EDIL DE LA O CM DC PLANNING CT OF BRAIN DONE ON ADMISSION -NO ACUTE INTRACRANIAL HEMORRHAGE .MRI DONE YESTERDAY PENDING RESULT.POSSIBLE DISCHARGE IF MRI IS NEGATIVE.[facility] CALLED 02/14/23 AND UPDATED OF PATIENT'S STATUS FOR FOLLOW UP PT/OT WHEN PATIENT IS DISCHARGED.CM TO FOLLOW.
[2023-02-14] MEDS: INSULIN LISPRO SLIDING SCALE 100 UNITS/ML VIAL SUBQ PRN ×2 (13:01→20:11)
--- NOTE | 2023-02-14 14:10 | NUR ---
PT OFF TO [facility] FOR MRI. REPORT GIVEN TO TRANSPORTATION AND FACESHEET PROVIDED.
--- NOTE | 2023-02-14 15:58 | NUR ---
PT RETURNED FROM MRI AT [facility]. PT STABLE, NO SIGNS OF DISTRESS. NO REPORTS OF PAIN, DISTRESS OR DISCOMFORT. BED IN LOWEST POSITION, 2 SIDE RAILS UP, CALL LIGHT WITHIN REACH, REORIENTED PT TO CALL LIGHT. NO FURTHER NEEDS ARE TO BE MET AT THIS TIME, WILL CONTINUE WITH CARE.
[2023-02-14 16:00] VITALS: BP 122/80
[2023-02-14] MEDS: hydrALAZINE 10 MG TAB PO SCH (17:13)
--- NOTE | 2023-02-14 19:00 | NUR ---
PT AWAKE IN BED, NO SIGNS OF DISTRESS. PT REPORTS NO PAIN OR DISCOMFORT. NO FURTHER NEEDS ARE TO BE MET AT THIS TIME. ENDORSED PT TO NIGHTSHIFT NURSE FOR CONTINUITY OF CARE.
--- NOTE | 2023-02-14 19:25 | NUR ---
RECEIVED PATIENT FROM AM NURSE FOR CONTINUITY OF CARE.PT IS STABLE
[2023-02-14 20:00] VITALS: BP 133/79
[2023-02-15] VITALS: BP 142/76
[2023-02-15] MEDS: MAG SULF 2000 MG/WATER PREMIX 50 ML IV PRN (00:37)
--- NOTE | 2023-02-15 00:38 | NUR ---
MAGNESIUM SULFATE INFUSING TO COVER MAGNESIUM OF 1.2 TOLERATING WELL
[2023-02-15 04:00] VITALS: BP 148/86
[2023-02-15] MEDS: BLOOD GLUCOSE MONITORING 1 DEV DEV FS SCH ×4 (06:30→21:08)
[2023-02-15 06:57] LABS: BASOPHILS # (AUTO) 0.1 K/uL (0.00-0.22); BASOPHILS % (AUTO) 0.8 % (0.0-2.0); EOSINOPHILS # (AUTO) 0.9 K/uL (0-0.4); EOSINOPHILS % (AUTO) 11.8 % (0.0-4.0); HEMOGLOBIN 9.5 g/dL (12.0-18.0); LYMPHOCYTES # (AUTO) 1.7 K/uL (2.0-11.5); MEAN CORPUSCULAR HEMOGLOBIN 21 pg (27-31); MEAN CORPUSCULAR HGB CONC 32 g/dL (33-37); MONOCYTES # (AUTO) 0.8 K/uL (0.8-1.0); MONOCYTES % (AUTO) 9.7 % (1.7-9.3); NEUTROPHILS # (AUTO) 4.5 K/uL (1.8-7.7); NEUTROPHILS % (AUTO) 56.7 % (42.2-75.2); PLATELET COUNT (AUTO) 473 K/uL (140-450); RED BLOOD CELL COUNT(AUTO) 4.48 MIL/uL (4.20-6.10); RED CELL DISTRIBUTION WIDTH 18.3 % (11.6-13.7); WHITE BLOOD COUNT (AUTO) 7.9 K/uL (4.8-10.8)
[2023-02-15 07:01] LABS: ANION GAP 12.7 (8-16); CARBON DIOXIDE 29.9 mmol/L (21-32); POTASSIUM 3.6 mmol/L (3.5-5.1)
--- NOTE | 2023-02-15 07:08 | NUR ---
receive the patient from the production supervisor off shift derek stevenson rm 107B aox4 . with admitting diagnosis of stroke . will continue to monitor
[2023-02-15 08:00] VITALS: BP 161/84
[2023-02-15] MEDS: hydrALAZINE 10 MG TAB PO SCH ×3 (08:40→17:40)
[2023-02-15] MEDS: ASPIRIN 325 MG TABEC PO SCH (08:40)
[2023-02-15] MEDS: TAMSULOSIN 0.4 MG CAP PO SCH (08:40)
[2023-02-15] MEDS: ATORVASTATIN 20 MG TAB PO SCH (08:43)
[2023-02-15 12:00] VITALS: BP 166/78
[2023-02-15] MEDS: INSULIN LISPRO SLIDING SCALE 100 UNITS/ML VIAL SUBQ PRN (12:32)
--- NOTE | 2023-02-15 13:57 | NUR ---
02/15/23 RD INITIAL ASSESSMENT COMPLETED PLEASE REFER TO NUTRITION ASSESSMENT UNDER CARE ACTIVITY FOR ESTIMATED NUTRITIONAL NEEDS. 1. CONTINUE [id number] DIET TOLERATED 2. PROVIDED NUTRITION EDUCATION WITH HANDOUTS FROM THE [employer] ON THE TOPICS OF CARBOHYDRATE COUNTING, LABEL READING, AND HEALTHY EATING TIPS 3. RD TO FOLLOW-UP 7 DAYS, LOW RISK REVIEWED BY DIANA WOODALL RD
[2023-02-15 16:00] VITALS: BP 135/77
--- NOTE | 2023-02-15 19:14 | NUR ---
will endorse to slot shift manager rn for continuity of care . to monitor blood pressure to prevent stroke
--- NOTE | 2023-02-15 19:30 | NUR ---
RECEIVED REPORT FROM DAY SHIFT RN FOR CONTINUITY OF CARE. PT IS AWAKE AND ALERT. NOT IN ANY DISTRESS. ON RA. PT HAS 18 GAUGE ON LEFT AC SALINE LOCK. POC DISCUSSED. WILL CONTINUE TO MONITOR THE PT.
[2023-02-15 20:00] VITALS: BP 152/83
[2023-02-16] VITALS: BP 149/89
--- NOTE | 2023-02-16 00:12 | NUR ---
PT SLEEPING COMFORTABLY IN BED. PT NOT IN ANY ACUTE DISTRESS. BREATHING EVEN AND UNLABORED. WILL CONTINUE TO MONITOR THE PT.
[2023-02-16 04:00] VITALS: BP 168/82
[2023-02-16] MEDS: hydrALAZINE 20 MG/ML VIAL IVP PRN (04:31)
[2023-02-16 06:23] LABS: BASOPHILS # (AUTO) 0.1 K/uL (0.00-0.22); BASOPHILS % (AUTO) 0.7 % (0.0-2.0); EOSINOPHILS % (AUTO) 13.8 % (0.0-4.0); HEMATOCRIT 27.6 % (36-52); HEMOGLOBIN 8.8 g/dL (12.0-18.0); LYMPHOCYTES # (AUTO) 1.7 K/uL (2.0-11.5); LYMPHOCYTES % (AUTO) 23.5 % (20.5-51.1); MEAN CORPUSCULAR HEMOGLOBIN 22 pg (27-31); MEAN CORPUSCULAR HGB CONC 32 g/dL (33-37); MEAN CORPUSCULAR VOLUME 69.3 fL (80-94); MONOCYTES # (AUTO) 0.8 K/uL (0.8-1.0); MONOCYTES % (AUTO) 10.9 % (1.7-9.3); NEUTROPHILS # (AUTO) 3.7 K/uL (1.8-7.7); NEUTROPHILS % (AUTO) 51.1 % (42.2-75.2); PLATELET COUNT (AUTO) 456 K/uL (140-450); RED BLOOD CELL COUNT(AUTO) 3.98 MIL/uL (4.20-6.10); WHITE BLOOD COUNT (AUTO) 7.3 K/uL (4.8-10.8)
[2023-02-16 06:33] LABS: ANION GAP 12.1 (8-16); CARBON DIOXIDE 29.1 mmol/L (21-32); CREATININE 0.9 mg/dL (0.6-1.3); POTASSIUM 3.2 mmol/L (3.5-5.1)
[2023-02-16] MEDS: INSULIN LISPRO SLIDING SCALE 100 UNITS/ML VIAL SUBQ PRN ×4 (06:36→20:09)
[2023-02-16] MEDS: BLOOD GLUCOSE MONITORING 1 DEV DEV FS SCH ×4 (06:37→20:07)
--- NOTE | 2023-02-16 07:22 | NUR ---
ENDORSED PT TO DAY SHIFT RN FOR CONTINUITY OF CARE. PT IS STABLE.
--- NOTE | 2023-02-16 07:23 | NUR ---
RECEIVED REPORT FROM NIGHTSHIFT NURSE. PATIENT IS AWAKE AND RESTING IN BED, AOX4, NO SIGNS OF DISTRESS, ON RM AIR. IV TO LEFT AC, 18G, SALINE LOCK, CLEAN AND INTACT. PT REPORTS NO PAIN OR DISCOMFORT. NO FURTHER NEEDS ARE TO BE MET AT THIS TIME. WILL CONTINUE WITH CARE. BED IN LOWEST POSITION, 2 SIDE RAILS UP, CALL LIGHT WITHIN REACH, REORIENTED PT TO CALL LIGHT.
[2023-02-16 08:00] VITALS: BP 157/87
[2023-02-16] MEDS: ATORVASTATIN 20 MG TAB PO SCH (09:33)
[2023-02-16] MEDS: ASPIRIN 325 MG TABEC PO SCH (09:33)
[2023-02-16] MEDS: TAMSULOSIN 0.4 MG CAP PO SCH (09:33)
[2023-02-16] MEDS: POTASSIUM CHLORIDE 10 MEQ TABER PO PRN (09:33)
[2023-02-16] MEDS: hydrALAZINE 10 MG TAB PO SCH ×3 (09:33→17:27)
[2023-02-16 12:00] VITALS: BP 159/87
[2023-02-16 16:00] VITALS: BP 133/62
[2023-02-16] MEDS: MAG SULF 2000 MG/WATER PREMIX 50 ML IV PRN (17:24)
--- NOTE | 2023-02-16 19:29 | NUR ---
ENDORSED PT TO NIGHTSHIFT NURSE FOR CONTINUITY OF CARE. PT AWAKE, RESTING IN BED. STABLE, NO REPORTS OF PAIN OR DISTRESS. NO FURTHER NEEDS ARE TO BE MET AT THIS TIME. BED IN LOWEST POSITION, 2 SIDE RAILS UP, CALL LIGHT WITHIN REACH.
--- NOTE | 2023-02-16 19:30 | NUR ---
RECEIVED REPORT FROM DAY SHIFT NURSE JONATHAN FOR CONTINUITY OF CARE. PATIENT IS A&O X4. PATIENT IS ON ROOM AIR; BREATHING IS NORMAL WITH SYMMETRICAL RISE AND FALL OF CHEST. IV IS A 18G LAC, NO FLUIDS RUNNING AT THIS TIME. PATIENT IS SITTING IN BED IN HIGH-FOWLERS POSITION. BED IS IN LOWEST POSITION, WHEELS LOCKED, CALL LIGHT IN PLACE. WILL CONTINUE TO OBSERVE PATIENT.
[2023-02-16 20:00] VITALS: BP 139/67
[2023-02-17] VITALS: BP 146/73
[2023-02-17 04:00] VITALS: BP 155/75
--- NOTE | 2023-02-17 04:00 | NUR ---
PATIENT SLEPT THROUGHOUT THE NIGHT. PATIENT'S BREATHING IS NORMAL WITH SYMMETRICAL RISE AND FALL OF CHEST. WILL CONTINUE TO OBSERVE PATIENT.
[2023-02-17] MEDS: BLOOD GLUCOSE MONITORING 1 DEV DEV FS SCH ×2 (07:08→13:05)
--- NOTE | 2023-02-17 07:38 | NUR ---
ENDORSED TO DAY SHIFT NURSE ARIADNE FOR CONTINUITY OF CARE. PATIENT IS STABLE.
[2023-02-17 08:00] VITALS: BP 159/74
--- NOTE | 2023-02-17 08:00 | NUR ---
NURSE REPORT REPORT OBTAINED FROM NIGHT NURSE CHIOMA NGUYEN AT 072O AND THIS NURSE ASSUMED CARE OF PATIENT. ARIADNE WOODARD RN
[2023-02-17] MEDS: ASPIRIN 325 MG TABEC PO SCH (08:49)
[2023-02-17] MEDS: ATORVASTATIN 20 MG TAB PO SCH (08:50)
[2023-02-17] MEDS: TAMSULOSIN 0.4 MG CAP PO SCH (08:50)
[2023-02-17] MEDS: hydrALAZINE 10 MG TAB PO SCH ×2 (08:51→13:06)
[2023-02-17 10:14] LABS: ANION GAP 12.5 (8-16); CREATININE 1.1 mg/dL (0.6-1.3); POTASSIUM 3.5 mmol/L (3.5-5.1)
[2023-02-17 10:22] LABS: BASOPHILS # (AUTO) 0.1 K/uL (0.00-0.22); BASOPHILS % (AUTO) 1.1 % (0.0-2.0); EOSINOPHILS % (AUTO) 11.2 % (0.0-4.0); HEMATOCRIT 30.8 % (36-52); HEMOGLOBIN 9.8 g/dL (12.0-18.0); LYMPHOCYTES # (AUTO) 2.4 K/uL (2.0-11.5); LYMPHOCYTES % (AUTO) 26.8 % (20.5-51.1); MEAN CORPUSCULAR HEMOGLOBIN 22 pg (27-31); MEAN CORPUSCULAR HGB CONC 32 g/dL (33-37); MONOCYTES # (AUTO) 0.8 K/uL (0.8-1.0); MONOCYTES % (AUTO) 9.3 % (1.7-9.3); NEUTROPHILS # (AUTO) 4.7 K/uL (1.8-7.7); NEUTROPHILS % (AUTO) 51.6 % (42.2-75.2); PLATELET COUNT (AUTO) 543 K/uL (140-450); RED BLOOD CELL COUNT(AUTO) 4.46 MIL/uL (4.20-6.10); RED CELL DISTRIBUTION WIDTH 18.1 % (11.6-13.7); WHITE BLOOD COUNT (AUTO) 9.1 K/uL (4.8-10.8)
[2023-02-17] MEDS ORDERED: ATOR20TA40 PO (12:28)
[2023-02-17] MEDS ORDERED: ASPI-1206 PO (12:28)
--- NOTE | 2023-02-17 12:30 | NUR ---
NURSE NOTES VS TAKEN. BP 162/85. BG BEFORE LUNCH 265. GIVEN SCHEDULED HYDRALAZINE PO ORDERED AND 6 UNITS HUMALOG.
[2023-02-17] MEDS: INSULIN LISPRO SLIDING SCALE 100 UNITS/ML VIAL SUBQ PRN (13:06)
--- NOTE | 2023-02-17 13:50 | NUR ---
D/C NURSING NOTES D/C INSTRUCTIONS GIVEN TO THE PATIENT. PATIENT VERBALIZED UNDERSTANDINGS OF INSTRUCTIONS. SL DC'D WITH CATHETER INTACT. DC'D VIA W/C. BROTHER MELY IN TO TAKE PATIENT HOME. PATIENT HAS A WALKER AND BRO SAYS THE WALKER IS FROM THE CORRECTION THAT THE PATIENT WAS STAYING AT. ARIADNE WOODARD RN
--- NOTE | 2023-02-18 09:31 | NUR ---
Wound consult not done. pt. discharged.
[2023-02-19] MEDS ORDERED: SULF-59 PO (14:57)
== END 2023-02-17 14:25 | disposition home or self-care (01) | DRG 64 ==
LOC: MED 11:34 → MTU 13:21
PROVIDERS: ADMIT Family Medicine; ATTEND Family Medicine
DX: I63.81 Other cerebral infarction due to occlusion or stenosis of small artery (principal); E43 Unspecified severe protein-calorie malnutrition; G81.91 Hemiplegia, unspecified affecting right dominant side; I10 Essential (primary) hypertension; E87.6 Hypokalemia; E11.9 Type 2 diabetes mellitus without complications; N40.0 Benign prostatic hyperplasia without lower urinary tract symptoms; K21.9 Gastro-esophageal reflux disease without esophagitis; D64.9 Anemia, unspecified; D75.839 Thrombocytosis, unspecified; E83.42 Hypomagnesemia; D72.10 Eosinophilia, unspecified; Z20.822 Contact with and (suspected) exposure to COVID-19; Z79.899 Other long term (current) drug therapy; Z87.01 Personal history of pneumonia (recurrent)
CPT/HCPCS: 36415; 70450; 71045; 80048; 80053; 80305; 81001; 82948; 83605; 83735; 84484; 85025; 85610; 85730; 86886; 86900; 86901; 87040; 87081; 87086; 92526; 93005; 97112; 97116; 97530; 99285; J0360; J1815; J3475; Q9967

== ENCOUNTER 2023-10-22 19:04 | Emergency (ER) | payer OTHER ==
[~2023-10-22] VITALS: Ht 170.2 cm; Wt 64.0 kg
[~2023-10-22 19:04] MED LIST changes: +ASPI-1206 PO; +ATOR20TA40 PO; +SULF-59 PO
[2023-10-22 20:21] VITALS: BP 152/77; PULSE 94; RESP 20; TEMP 98; O2SAT 98
[2023-10-23] MEDS ORDERED: ACYC400T14 PO (00:39)
[2023-10-23] MEDS ORDERED: HYDROcodone/APAP 5/325 MG 1 TAB TAB PO ONE (00:45)
[2023-10-23 00:52] VITALS: BP 145/80; PULSE 88; RESP 16; TEMP 98; O2SAT 99
== END 2023-10-23 00:52 | disposition home or self-care (01) ==
LOC: MED 19:04
DX: B02.9 Zoster without complications (principal); E11.9 Type 2 diabetes mellitus without complications; I10 Essential (primary) hypertension; Z79.4 Long term (current) use of insulin; Z79.899 Other long term (current) drug therapy
CPT/HCPCS: 99283